=== PATIENT | male | born 1985 | race African-American/Black ===

== ENCOUNTER 2023-12-07 23:11 | Inpatient (IN) ==
--- NOTE | 2023-12-07 23:43 | Emergency Department Note ---
Impression & Plan SOB (shortness of breath), Hypoxia, Abnormal CT scan ED Provider Note CHIEF COMPLAINT: Shortness of breath HISTORY OF PRESENTING ILLNESS: This 38-year-old male patient presents to the emergency department with his mother for evaluation of shortness of breath. The patient has had a cough, nasal congestion, loose stools, sore throat, and shortness of breath for the past 4 days. The patient was at [facility] last evening and was COVID-negative with normal CXR per patient. He states that he did not have any other testing done. The patient states that he has not improved with the treatment from the ER last evening. The patient states that his O2 sats are down to 90% at home. He has been coughing so much he is vomiting. He has been taking the Tessalon Perles and Albuterol without improvement of his symptoms. He did not develop a fever until this evening. Having some lower abdominal pain along with the nausea and vomiting. Also feels like he's losing his voice. REVIEW OF SYSTEMS: See HPI for pertinent positives and pertinent negatives. ALLERGIES: NKDA MEDICATIONS: Vit D PAST MEDICAL HISTORY: Vit D deficiency, Asthma PHYSICAL EXAM: Vital Signs: Vitals are noted on the nurse's note and reviewed by myself. GENERAL: The patient appears ill, but non toxic in appearance and in no acute distress. SKIN: No obvious abnormal rashes or skin lesions. Capillary reflex less than 2 seconds. HEAD: Normocephalic, atraumatic. EARS: Bilateral external auditory canals clear without tragus tenderness. Bilateral tympanic membranes pearly cruz with mild serous effusion. No mastoid tenderness bilaterally. EYES: Pupils equal round and reactive to light and accommodation. Conjunctivae without injection, sclerae without icterus. Extraocular movements intact. NOSE: Patent, turbinates inflamed with no discharge. No sinus tenderness. MOUTH: Mucous membranes moist. Airway patent, uvula midline. Pharynx is erythematous and edematous without exudate. Pharynx without postnasal drip. No evidence for peritonsillar abscess. NECK: Supple without nuchal rigidity. No lymphadenopathy. No Jos angina. HEART: Regular rate and rhythm without murmurs gallops or rubs. LUNGS: Clear to auscultation bilaterally without wheezes, rales or rhonchi. No accessory muscle use or retractions. ABDOMEN: Positive bowel sounds x 4. Normal tympanic percussion. Soft, diffusely tender to palpation with increased tenderness in the lower abdomen. No obvious masses or organomegaly. No CVA tenderness. No guarding, rigidity, or rebound tenderness. NEURO: Patient was alert and oriented. DIFFERENTIAL DIAGNOSIS: Differential diagnosis includes viral syndrome, RSV, Influenza, COVID, strep throat, pharyngitis/tonsillitis, mononucleosis, retropharyngeal abscess, peritonsillar abscess, otitis media, otitis externa, sinusitis, bronchitis, pneumonia, hepatitis, pancreatitis, cholecystitis, cholelithiasis, appendicitis, kidney stone, pyelonephritis, UTI, gastritis, gastroenteritis, mesenteric adenitis, obstruction, constipation, hernia, abdominal abscess, perforation, diverticulitis, IBD, ischemic colitis, abdominal aortic aneurysm, testicular torsion, prostatitis, or others. ED COURSE AND MEDICAL DECISION MAKING: HISTORY FROM INDEPENDENT HISTORIAN: Additional history was obtained from the patient's mother MEDICATIONS GIVEN: 1 L normal saline solution bolus. Tylenol 1000 mg IV. DuoNeb treatment. MONITOR: Continuous front office attendant: Order was placed for continuous front office attendant. Patient was placed on the front office attendant and continuous pulse ox. Patient was noted to be in sinus tachycardia at an initial rate of 110 bpm per my interpretation. EKG: EKG was interpreted by myself as sinus tachycardia at 102 bpm with no acute ST or T wave changes. INTERPRETATION OF LABS: I interpreted the labs with full lab results as below in the lab section of this note. Pertinent lab results discussed in the MDM section below. INTERPRETATION OF IMAGING: Imaging studies were interpreted by myself and read by radiology as per the imaging section of this note. CTA of the chest and CT of the abdomen pelvis with IV contrast showed no pulmonary embolism, aortic aneurysm or dissection. Nonspecific mediastinal/bilateral hilar and axillary lymphadenopathy. PET CT scan correlation and or biopsy for histological diagnosis recommended. Moderately severe centrilobular pulmonary emphysema. Moderate bilateral bronchial wall thickening/mild dilatation. Mildly enlarged main pulmonary artery, suggestive of sequela of secondary pulmonary arterial hypertension. CT chest noted a 2.0 x 1.6 cm subtle focal filling defect in the cardiac left lateral ventricle, question thrombus/pseudo-thrombus versus angiosarcoma. Recommend follow-up. Nonspecific multiple small/shotty para- aortic retroperitoneal lymph node seen. No lymphadenopathy by CT size criteria. Increased urinary bladder wall thickness, concerning for chronic cystitis versus outlet obstruction. Recommend clinical correlation. Moderately advanced degenerative disc/endplate spondylitic changes seen from L2-S1 levels. CONSULTATIONS: On-call hospitalist CRITICAL CARE: I have personally spent 40 minutes of critical care time in the direct management of this patient. This includes bedside care, interpretation of diagnostic studies, and testing, discussion with consultants, patient, and family members, and other required patient management activities. This 40 minutes is in excess of all separately billable procedures. MDM SUMMARY: The patient was seen during a time of extreme volume and extreme acuity. Nursing triage protocols were initiated with IV lock, labs, and/or imaging studies conducted by protocol in the triage area. The patient was initially evaluated in a triage room and then re-evaluated once they were taken back to an exam room. The patient has had a sore throat, cough, nasal congestion, shortness of breath, abdominal pain, and diarrhea for the past 4 days. He was seen at [facility] yesterday with a negative COVID test and negative chest x-ray per patient. He was given Tessalon Perles without improvement. The patient states that the symptoms are getting progressively worse and he now has a fever. The patient states his pulse ox at home was 90%. He denies any history of cardiac or pulmonary etiologies. The patient was initially tachycardic and febrile with pulse ox around 90 to 91%. The patient was given 1 L normal saline solution bolus, Tylenol 1000 mg IV, and a DuoNeb treatment. His fever resolved and his tachycardia improved. However, the patient's pulse ox did drop down to 86% and he was placed on 2 L of oxygen by nasal cannula. EKG with sinus tachycardia, but no other acute abnormalities. White blood cell count elevated 11.04. Hemoglobin normal at 15.6. Platelet count normal at 213. aPTT 33, but the rest of the coags were normal. CMP was normal. Lactate normal. Magnesium normal. High-sensitivity troponin normal. Urinalysis with trace ketones and positive urobilinogen, but no evidence for UTI. Respiratory BioFire was negative. Group A strep PCR negative. Anaplasma and Babesia smear were negative with DNA PCR still pending. Lyme disease screen is pending. CTA of the chest and CT of the abdomen pelvis with IV contrast showed no pulmonary embolism, aortic aneurysm or dissection. Nonspecific mediastinal/bilateral hilar and axillary lymphadenopathy. PET CT scan correlation and or biopsy for histological diagnosis recommended. Moderately severe centrilobular pulmonary emphysema. Moderate bilateral bronchial wall thickening/mild dilatation. Mildly enlarged main pulmonary artery, suggestive of sequela of secondary pulmonary arterial hypertension. CT chest noted a 2.0 x 1.6 cm subtle focal filling defect in the cardiac left lateral ventricle, question thrombus/pseudo-thrombus versus angiosarcoma. Recommend follow-up. Nonspecific multiple small/shotty para-aortic retroperitoneal lymph node seen. No lymphadenopathy by CT size criteria. Increased urinary bladder wall thickness, concerning for chronic cystitis versus outlet obstruction. Recommend clinical correlation. Moderately advanced degenerative disc/endplate spondylitic changes seen from L2-S1 levels. Due to the patient's abnormal CT scan findings as well as his hypoxia, the patient will need to be admitted for further evaluation and treatment. I spoke with the on-call hospitalist who agreed to admit the patient. Please refer to their dictation for further details. The patient's care was transferred in stable condition. DIAGNOSIS: Shortness of breath Hypoxia ` Abnormal CT scans Past Med/Surg History Problem List (Updated 12/08/23 @ 04:57 by Fátima Adkins PA-C) Abnormal CT scan (Acute) Hypoxia (Acute) SOB (shortness of breath) (Acute) Social History Smoking Status: Former smoker Tobacco Type: Cigarettes Preferred Language: Malaysian Feels Safe at Home: Yes Allergies Allergies Allergy/AdvReac Type Severity Reaction Status Date / Time No Known Allergies Allergy Verified 12/07/23 23:52 Results & Data (ED) Vital Signs Vital Signs - 24 hr 12/07/23 23:14 12/08/23 00:30 12/08/23 01:03 Temperature 38.8 C H Temperature Source Oral Pulse Rate 117 H Pulse Rate [Right Finger] 109 H Pulse Rhythm Pulse Rhythm [Right Finger] Pulse Strength [Right Finger] Respiratory Rate 18 Respiratory Effort / Characteristics Non-Labored Spontaneous Non-Labored Spontaneous Respiratory Depth Normal Normal Respiratory Pattern Regular Regular Blood Pressure 145/86 H Blood Pressure [Right Arm] 140/75 Blood Pressure Mean 105 Blood Pressure Mean [Right Arm] 96 Blood Pressure Position Sitting Blood Pressure Position [Right Arm] Lying Pulse Oximetry 91 90 Oxygen Delivery Method Room Air Room Air Oxygen Flow Rate Sepsis Recent Fever Within 48 Hours Yes Sepsis New/Unexplained Change in Mental Status N/A Sepsis Action Taken by Nursing Physician Notified 12/08/23 01:03 12/08/23 02:49 12/08/23 03:04 Temperature Temperature Source Pulse Rate 109 H 101 H Pulse Rate [Right Finger] 83 Pulse Rhythm Regular Pulse Rhythm [Right Finger] Regular Pulse Strength [Right Finger] Normal Respiratory Rate 27 H Respiratory Effort / Characteristics Non-Labored Respiratory Depth Normal Respiratory Pattern Regular Blood Pressure Blood Pressure [Right Arm] 136/77 Blood Pressure Mean Blood Pressure Mean [Right Arm] 96 Blood Pressure Position Blood Pressure Position [Right Arm] Lying Pulse Oximetry 90 90 Oxygen Delivery Method Room Air Room Air Oxygen Flow Rate Sepsis Recent Fever Within 48 Hours Sepsis New/Unexplained Change in Mental Status Sepsis Action Taken by Nursing 12/08/23 03:13 12/08/23 03:21 12/08/23 03:45 Temperature 36.9 C Temperature Source Oral Pulse Rate Pulse Rate [Right Finger] 97 H Pulse Rhythm Pulse Rhythm [Right Finger] Pulse Strength [Right Finger] Respiratory Rate 20 Respiratory Effort / Characteristics Non-Labored Spontaneous Respiratory Depth Normal Respiratory Pattern Regular Blood Pressure Blood Pressure [Right Arm] 122/80 Blood Pressure Mean Blood Pressure Mean [Right Arm] 94 Blood Pressure Position Blood Pressure Position [Right Arm] Sitting Pulse Oximetry 91 86 L Oxygen Delivery Method Room Air Room Air Room Air Oxygen Flow Rate Sepsis Recent Fever Within 48 Hours Sepsis New/Unexplained Change in Mental Status Sepsis Action Taken by Nursing 12/08/23 03:49 Temperature Temperature Source Pulse Rate Pulse Rate [Right Finger] Pulse Rhythm Pulse Rhythm [Right Finger] Pulse Strength [Right Finger] Respiratory Rate Respiratory Effort / Characteristics Respiratory Depth Respiratory Pattern Blood Pressure Blood Pressure [Right Arm] Blood Pressure Mean Blood Pressure Mean [Right Arm] Blood Pressure Position Blood Pressure Position [Right Arm] Pulse Oximetry 92 Oxygen Delivery Method Nasal Cannula Oxygen Flow Rate 2 Sepsis Recent Fever Within 48 Hours Sepsis New/Unexplained Change in Mental Status Sepsis Action Taken by Nursing Laboratory Data 12/07/23 00:55 12/08/23 00:55 Lab Results 12/07/23 12/07/23 12/07/23 Range/Units 00:55 23:24 23:57 WBC 11.04 H (4.8-10.8) K/ul RBC 5.56 (4.70-6.10) M/uL Hgb 15.6 (14.0-18.0) g/dl Hct 46.3 (42.0-52.0) % MCV 83.3 (80.0-100.0) fL MCH 28.1 (25.0-34.0) pg MCHC 33.7 (32.0-36.0) g/dL RDW Std Deviation 38.9 (36.4-46.3) fL RDW Coeff of Lizette 12.9 (11.5-14.5) % Plt Count 213 (130-400) K/uL MPV 10.0 (9.4-12.4) fL Immature Gran % (Auto) 0.2 % Neut % (Auto) 67.6 % Lymph % (Auto) 21.6 % [place] % (Auto) 9.8 % Eos % (Auto) 0.5 % Baso % (Auto) 0.3 % Neut # (Auto) 7.48 H (1.40-6.50) K/uL Lymph # (Auto) 2.38 (1.20-3.40) K/uL [place] # (Auto) 1.08 H (0.11-0.59) K/uL Eos # (Auto) 0.05 (0.00-0.50) K/uL Baso # (Auto) 0.03 (0.00-0.20) K/uL Immature Gran # (Auto) 0.02 (0.01-0.20) K/uL PT (9.0-12.0) Seconds INR (0.9-1.1) APTT (21-31) Seconds PTT Ratio Sodium (136-145) mmol/L Potassium (3.5-5.1) mmol/L Chloride (98-107) mmol/L Carbon Dioxide (21-32) mmol/L Anion Gap (3-11) BUN (6-23) mg/dl Creatinine (0.6-1.4) mg/dl Est Cr Clr Drug Dosing ml/min eGFR BUN/Creatinine Ratio (10-20) Glucose (70-99(Fasting)) mg/dl Lactate 1.0 (0.4-2.0) mmol/L Calcium (8.6-10.3) mg/dl Magnesium (1.7-2.4) mg/dl Total Bilirubin (0.2-1.0) mg/dl AST (13-39) U/L ALT (7-52) U/L Alkaline Phosphatase (34-104) U/L Troponin I High Sens (0-20) pg/ml Total Protein (6.0-8.3) gm/dl Albumin (3.4-5.0) gm/dl Globulin (2.5-4.0) gm/dl Albumin/Globulin Ratio (0.9-2) Procalcitonin Cancelled Urine Color Urine Appearance (Clear) Urine pH (4.5-7.5) Ur Specific [place] (1.000-1.030) Urine Protein (Negative) Urine Glucose (UA) (Negative) Urine Ketones (Negative) Urine Blood (Negative) Urine Nitrite (Negative) Urine Bilirubin (Negative) Urine Urobilinogen (Negative) Ur Leukocyte Esterase (Negative) Urine WBC (Auto) (0-5) /hpf Urine RBC (Auto) (0-2) /hpf U Hyaline Cast (Auto) (0-2) /lpf U Epithel Cells (Auto) (0-2) /hpf Urine Bacteria (Auto) (None Seen) Adenovirus (PCR) Not Detected (NotDetected) Anaplasma Smear Babesia Smear B. pertussis DNA (PCR) Not Detected (NotDetected) B.parapertussis DNA PCR Not Detected (NotDetected) C. pneumoniae DNA (PCR) Not Detected (NotDetected) Coronavirus OC43 (PCR) Not Detected (NotDetected) Coronavirus HKU1 (PCR) Not Detected (NotDetected) Coronavirus 229E (PCR) Not Detected (NotDetected) SARS-CoV-2 (PCR) Not Detected (NotDetected) Coronavirus NL63 (PCR) Not Detected (NotDetected) Human Metapneumovir PCR Not Detected (NotDetected) Influenza Type A (PCR) Not Detected (NotDetected) Influenza Type B (PCR) Not Detected (NotDetected) M. pneumoniae (PCR) Not Detected (NotDetected) Parainfluenza 1 (PCR) Not Detected (NotDetected) Parainfluenza 2 (PCR) Not Detected (NotDetected) Parainfluenza 3 (PCR) Not Detected (NotDetected) Parainfluenza 4 (PCR) Not Detected (NotDetected) RSV (PCR) Not Detected (NotDetected) Entero/Rhino (PCR) Not Detected (NotDetected) Group A Strep (PCR) NOT DETECTED (NotDetected) 12/08/23 12/08/23 Range/Units 00:55 02:15 WBC (4.8-10.8) K/ul RBC (4.70-6.10) M/uL Hgb (14.0-18.0) g/dl Hct (42.0-52.0) % MCV (80.0-100.0) fL MCH (25.0-34.0) pg MCHC (32.0-36.0) g/dL RDW Std Deviation (36.4-46.3) fL RDW Coeff of Lizette (11.5-14.5) % Plt Count (130-400) K/uL MPV (9.4-12.4) fL Immature Gran % (Auto) % Neut % (Auto) % Lymph % (Auto) % [place] % (Auto) % Eos % (Auto) % Baso % (Auto) % Neut # (Auto) (1.40-6.50) K/uL Lymph # (Auto) (1.20-3.40) K/uL [place] # (Auto) (0.11-0.59) K/uL Eos # (Auto) (0.00-0.50) K/uL Baso # (Auto) (0.00-0.20) K/uL Immature Gran # (Auto) (0.01-0.20) K/uL PT 10.9 (9.0-12.0) Seconds INR 1.0 (0.9-1.1) APTT 33 H (21-31) Seconds PTT Ratio 1.2 Sodium 136 (136-145) mmol/L Potassium 3.8 (3.5-5.1) mmol/L Chloride 102 (98-107) mmol/L Carbon Dioxide 24 (21-32) mmol/L Anion Gap 10 (3-11) BUN 11 (6-23) mg/dl Creatinine 0.90 (0.6-1.4) mg/dl Est Cr Clr Drug Dosing 120.7 ml/min eGFR 113.51 BUN/Creatinine Ratio 12.2 (10-20) Glucose 98 (70-99(Fasting)) mg/dl Lactate (0.4-2.0) mmol/L Calcium 9.3 (8.6-10.3) mg/dl Magnesium 1.9 (1.7-2.4) mg/dl Total Bilirubin 0.6 (0.2-1.0) mg/dl AST 24 (13-39) U/L ALT 27 (7-52) U/L Alkaline Phosphatase 92 (34-104) U/L Troponin I High Sens 7.4 (0-20) pg/ml Total Protein 7.5 (6.0-8.3) gm/dl Albumin 4.4 (3.4-5.0) gm/dl Globulin 3.1 (2.5-4.0) gm/dl Albumin/Globulin Ratio 1.4 (0.9-2) Procalcitonin Urine Color Yellow Urine Appearance Clear (Clear) Urine pH 8.0 H (4.5-7.5) Ur Specific [place] 1.031 H (1.000-1.030) Urine Protein 1+ H (Negative) Urine Glucose (UA) Negative (Negative) Urine Ketones Trace H (Negative) Urine Blood Negative (Negative) Urine Nitrite Negative (Negative) Urine Bilirubin Negative (Negative) Urine Urobilinogen Positive H (Negative) Ur Leukocyte Esterase Negative (Negative) Urine WBC (Auto) 0-5 (0-5) /hpf Urine RBC (Auto) 0-2 (0-2) /hpf U Hyaline Cast (Auto) 0-2 (0-2) /lpf U Epithel Cells (Auto) 0-2 (0-2) /hpf Urine Bacteria (Auto) None Seen (None Seen) Adenovirus (PCR) (NotDetected) Anaplasma Smear See Comment Babesia Smear See Comment B. pertussis DNA (PCR) (NotDetected) B.parapertussis DNA PCR (NotDetected) C. pneumoniae DNA (PCR) (NotDetected) Coronavirus OC43 (PCR) (NotDetected) Coronavirus HKU1 (PCR) (NotDetected) Coronavirus 229E (PCR) (NotDetected) SARS-CoV-2 (PCR) (NotDetected) Coronavirus NL63 (PCR) (NotDetected) Human Metapneumovir PCR (NotDetected) Influenza Type A (PCR) (NotDetected) Influenza Type B (PCR) (NotDetected) M. pneumoniae (PCR) (NotDetected) Parainfluenza 1 (PCR) (NotDetected) Parainfluenza 2 (PCR) (NotDetected) Parainfluenza 3 (PCR) (NotDetected) Parainfluenza 4 (PCR) (NotDetected) RSV (PCR) (NotDetected) Entero/Rhino (PCR) (NotDetected) Group A Strep (PCR) (NotDetected) Administered Medications Discontinued Medications Albuterol (Albut/Ipratrop 3mg/0.5mg Neb 3 Ml Vial) 3 ml NEB NOW STA; Protocol Stop: 12/08/23 02:53 Last Admin: 12/08/23 03:04 Dose: 3 ml Documented By: SHAWN Sodium Chloride (Nss) 1,000 mls @ 999 mls/hr IV .Q1H1M MALIK Stop: 12/08/23 00:30 Last Infusion: 12/08/23 02:19 Dose: Infused Documented By: Admin: 12/08/23 01:09 Dose: 999 mls/hr Documented By: SHAWN Acetaminophen (Ofirmev) 1,000 mg in 100 mls @ 400 mls/hr IV NOW STA Stop: 12/07/23 23:39 Last Infusion: 12/08/23 01:09 Dose: Infused Documented By: Admin: 12/08/23 00:56 Dose: 400 mls/hr Documented By: SHAWN Ioversol (Optiray 320 125ml) 118 ml IV ONCE ONE Stop: 12/08/23 02:33 Last Admin: 12/08/23 02:32 Dose: 118 ml Documented By: JAIMEE Imaging Data Radiologist's Impression: Abdomen/Pelvis CT 12/07/23 23:53 Exam(s): CT ABDOMEN + PELVIS With Contrast IV Amt: 118 ml opti 320 EXAM: CT Abdomen and Pelvis With Intravenous Contrast CLINICAL HISTORY: Reason for exam: Abdominal pain, diarrhea, fever. TECHNIQUE: Axial computed tomography images of the abdomen and pelvis with intravenous contrast. CTDI is 25.63 mGy and DLP is 1340.28 mGy-cm. Automated exposure control was utilized for the study. A dose lowering technique was utilized adhering to the principles of ALARA. CONTRAST: Patient received 118 ml opti 320 of IV contrast COMPARISON: None. FINDINGS: Lung bases: Concurrently performed CT chest reported separately. CTA chest series 2 image 46 a focal filling defect is seen medially in the left lateral ventricle. A 2.0 x 1.6 cm subtle nonspecific focal filling defect seen medially in the left ventricle (series 5 image 9, series 6 image 33), question thrombus/pseudo-thrombus versus? angiosarcoma.. ABDOMEN: Motion-induced image degradation. Liver: Mild steatosis.. No mass. Gallbladder and bile ducts: Unremarkable. No calcified stones. No ductal dilation. Pancreas: Unremarkable. No mass. No ductal dilation. Spleen: Unremarkable. No splenomegaly. Adrenals: Unremarkable. No mass. Kidneys and ureters: Unremarkable. No solid mass. No hydronephrosis. Stomach and bowel: Unremarkable. No obstruction. No mucosal thickening. Sigmoid diverticulosis coli. No evidence of acute diverticulitis. PELVIS: Appendix: Normal appendix. Bladder: There is up to 10 mm wall thickness.. No mass. Reproductive: Borderline enlarged prostate. ABDOMEN and PELVIS: Intraperitoneal space: No free air. No significant fluid collection. Bones/joints: Moderate degenerative disc/endplate spondylitic changes are seen from L2-S1 levels. No acute fracture. No dislocation. Soft tissues: Unremarkable. A very a small fat-containing umbilical hernia. Vasculature: Unremarkable. No abdominal aortic aneurysm. Lymph nodes: Several small/shotty para-aortic/retroperitoneal lymph nodes are seen.. No lymphadenopathy by CT size criteria. IMPRESSION: CT chest noted a 2.0 x 1.6 cm subtle focal filling defect in the cardiac left lateral ventricle, question thrombus/pseudo-thrombus versus angiosarcoma. Recommend follow-up. Nonspecific multiple small/shotty para-aortic retroperitoneal lymph node seen. No lymphadenopathy by CT size criteria. Increased urinary bladder wall thickness, concerning for chronic cystitis versus outlet obstruction. Recommend clinical correlation. Moderately advanced degenerative disc/endplate spondylitic changes seen from L2-S1 levels. . Electronically signed by: Sandor Ying MD, DABR 12/08/23 04:21 AM Chest CTA 12/07/23 23:53 Exam(s): CTA CHEST IV Amt: 118 ml opti 320 EXAM: CT Angiography Chest With Intravenous Contrast CLINICAL HISTORY: Reason for exam: PE. TECHNIQUE: Axial computed tomographic angiography images of the chest with intravenous contrast. CTDI is 25.35 mGy and DLP is 875.48 mGy-cm. Automated exposure control was utilized for the study. A dose lowering technique was utilized adhering to the principles of ALARA. MIP reconstructed images were created and reviewed. COMPARISON: None. FINDINGS: Limited exam, suboptimal IV contrast bolus and motion artifact. Pulmonary arteries: Mildly enlarged: 32 mm in transverse measurement. No pulmonary embolism. Aorta: No acute findings. No thoracic aortic aneurysm. Lungs: Patent central airways. Diffuse moderate bilateral bronchial wall thickening/mild dilatation. Moderately severe centrilobular emphysema. Centrally a small platelike atelectasis in the right middle lob. No discernible mass. No consolidation. Pleural space: Unremarkable. No significant effusion. No pneumothorax. Heart: Unremarkable. No cardiomegaly. No significant pericardial effusion. No evidence of RV dysfunction. Bones/joints: No acute fracture. No dislocation. Soft tissues: Unremarkable. Lymph nodes: Multiple moderately enlarged mediastinal/bilateral hilar lymph nodes/lymphadenopathy. Multiple bilateral axillary moderately enlarged lymph nodes/lymphadenopathy. IMPRESSION: No pulmonary embolism, aortic aneurysm or dissection. Nonspecific mediastinal/bilateral hilar and axillary lymphadenopathy. PET CT scan correlation and or biopsy for histological diagnosis recommended. Moderately severe centrilobular pulmonary emphysema. Moderate bilateral bronchial wall thickening/mild dilatation. Mildly enlarged main pulmonary artery, suggestive of sequela of secondary pulmonary arterial hypertension. . Electronically signed by: Sandor Ying MD, DABR 12/08/23 04:02 AM Discharge Plan Visit Data Chief Complaint: Shortness of Breath/Dyspnea Stated Complaint: SOB ED Provider: [facility] ED Midlevel Provider: Fátima Adkins Discharge Problem: SOB (shortness of breath), Hypoxia, Abnormal CT scan Patient Disposition: Admitted As Inpatient Condition: Good Forms Stand Alone Forms: [facility] Referrals Referrals: PCP,NO [Physician] -
[2023-12-08 00:42] LABS: Adenovirus PCR Not Detected (NotDetected); Bordetella parapertussis PCR Not Detected (NotDetected); Bordetella pertussis PCR Not Detected (NotDetected); Chlamydia pneumoniae PCR Not Detected (NotDetected); Coronavirus 229E PCR Not Detected (NotDetected); Coronavirus CoV-2 (COVID19)PCR Not Detected (NotDetected); Coronavirus HKU1 PCR Not Detected (NotDetected); Coronavirus NL63 PCR Not Detected (NotDetected); Coronavirus OC43PCR Not Detected (NotDetected); Human Metapneumovirus PCR Not Detected (NotDetected); Influenza A PCR Not Detected (NotDetected); Influenza B PCR Not Detected (NotDetected); Mycoplasma pneumoniae PCR Not Detected (NotDetected); Parainfluenza Virus 1 PCR Not Detected (NotDetected); Parainfluenza Virus 2 PCR Not Detected (NotDetected); Parainfluenza Virus 3 PCR Not Detected (NotDetected); Parainfluenza Virus 4 PCR Not Detected (NotDetected); Respiratory Syncytial VirusPCR Not Detected (NotDetected); Rhinovirus/Enterovirus PCR Not Detected (NotDetected)
[2023-12-08] MEDS: ACETAMINOPHEN 1,000 MG/100 ML VIAL IV STA (00:56)
[2023-12-08] MEDS: SODIUM CHLORIDE 0.9% 1,000 ML IV SCH (01:09)
[2023-12-08 01:15] LABS: Basophils # (auto) 0.03 K/uL (0.00-0.20); Basophils % (auto) 0.3 %; Eosinophils # (auto) 0.05 K/uL (0.00-0.50); Eosinophils % (auto) 0.5 %; Hematocrit (blood only) 46.3 % (42.0-52.0); Hemoglobin 15.6 g/dl (14.0-18.0); Immature Granulocytes # (auto) 0.02 K/uL (0.01-0.20); Immature Granulocytes % (auto) 0.2 %; Lymphocytes # (auto) 2.38 K/uL (1.20-3.40); Lymphocytes % (auto) 21.6 %; Mean Corpuscular Hemoglobin 28.1 pg (25.0-34.0); Mean Corpuscular Hgb Conc 33.7 g/dL (32.0-36.0); Mean Corpuscular Volume 83.3 fL (80.0-100.0); Monocytes # (auto) 1.08 K/uL (0.11-0.59); Monocytes % (auto) 9.8 %; Neutrophils # (auto) 7.48 K/uL (1.40-6.50); Neutrophils % (auto) 67.6 %; Platelet Count 213 K/uL (130-400); RDW Coefficient of Variation 12.9 % (11.5-14.5); RDW Standard Deviation 38.9 fL (36.4-46.3); Red Blood Count 5.56 M/uL (4.70-6.10); White Blood Count 11.04 K/ul (4.8-10.8)
[2023-12-08 01:32] LABS: Albumin Globulin Ratio 1.4 (0.9-2); Albumin Level 4.4 gm/dl (3.4-5.0); BUN Creatinine Ratio 12.2 (10-20); Bilirubin,Total 0.6 mg/dl (0.2-1.0); Calcium 9.3 mg/dl (8.6-10.3); Creatinine Clr Calc Pharmacy 120.7 ml/min; Globulin 3.1 gm/dl (2.5-4.0); Magnesium 1.9 mg/dl (1.7-2.4); Potassium 3.8 mmol/L (3.5-5.1); Total Protein 7.5 gm/dl (6.0-8.3)
[2023-12-08 01:39] LABS: Troponin I High Sensitivity 7.4 pg/ml (0-20)
[2023-12-08 01:54] LABS: Partial Thromboplastin Ratio 1.2; Partial Thromboplastin Time 33 Seconds (21-31); Prothrombin Time 10.9 Seconds (9.0-12.0)
[2023-12-08] MEDS: OPTIRAY 320 125ml IV ONE (02:32)
[2023-12-08 02:38] LABS: Appearance Urine Clear (Clear); Bacteria Urine Automated None Seen (None Seen); Bilirubin Urine Negative (Negative); Blood Urine Negative (Negative); Cast Urine Automated 0-2 /lpf (0-2); Color Urine Yellow; Epithelial Cell Urine Auto 0-2 /hpf (0-2); Glucose Urine UA Negative (Negative); Ketones Urine Trace (Negative); Leukocyte Esterase Urine Negative (Negative); Nitrite Urine Negative (Negative); Protein Urine 1+ (Negative); RBC Urine Automated 0-2 /hpf (0-2); Specific Gravity Urine 1.031 (1.000-1.030); Urobilinogen Urine Positive (Negative); WBC Urine Automated 0-5 /hpf (0-5)
[2023-12-08] MEDS: ALBUT/IPRATROP 3MG/0.5MG NEB 3 ML VIAL NEB STA (03:04)
--- NOTE | 2023-12-08 04:03 | CT Scan Report ---
Exam(s): CTA CHEST IV Amt: 118 ml opti 320 EXAM: CT Angiography Chest With Intravenous Contrast CLINICAL HISTORY: Reason for exam: PE. TECHNIQUE: Axial computed tomographic angiography images of the chest with intravenous contrast. CTDI is 25.35 mGy and DLP is 875.48 mGy-cm. Automated exposure control was utilized for the study. A dose lowering technique was utilized adhering to the principles of ALARA. MIP reconstructed images were created and reviewed. COMPARISON: None. FINDINGS: Limited exam, suboptimal IV contrast bolus and motion artifact. Pulmonary arteries: Mildly enlarged: 32 mm in transverse measurement. No pulmonary embolism. Aorta: No acute findings. No thoracic aortic aneurysm. Lungs: Patent central airways. Diffuse moderate bilateral bronchial wall thickening/mild dilatation. Moderately severe centrilobular emphysema. Centrally a small platelike atelectasis in the right middle lob. No discernible mass. No consolidation. Pleural space: Unremarkable. No significant effusion. No pneumothorax. Heart: Unremarkable. No cardiomegaly. No significant pericardial effusion. No evidence of RV dysfunction. Bones/joints: No acute fracture. No dislocation. Soft tissues: Unremarkable. Lymph nodes: Multiple moderately enlarged mediastinal/bilateral hilar lymph nodes/lymphadenopathy. Multiple bilateral axillary moderately enlarged lymph nodes/lymphadenopathy. IMPRESSION: No pulmonary embolism, aortic aneurysm or dissection. Nonspecific mediastinal/bilateral hilar and axillary lymphadenopathy. PET CT scan correlation and or biopsy for histological diagnosis recommended. Moderately severe centrilobular pulmonary emphysema. Moderate bilateral bronchial wall thickening/mild dilatation. Mildly enlarged main pulmonary artery, suggestive of sequela of secondary pulmonary arterial hypertension. . Electronically signed by: Sandor Ying MD, DANIELER 12/08/23 04:02 AM
--- NOTE | 2023-12-08 04:22 | CT Scan Report ---
Exam(s): CT ABDOMEN + PELVIS With Contrast IV Amt: 118 ml opti 320 EXAM: CT Abdomen and Pelvis With Intravenous Contrast CLINICAL HISTORY: Reason for exam: Abdominal pain, diarrhea, fever. TECHNIQUE: Axial computed tomography images of the abdomen and pelvis with intravenous contrast. CTDI is 25.63 mGy and DLP is 1340.28 mGy-cm. Automated exposure control was utilized for the study. A dose lowering technique was utilized adhering to the principles of ALARA. CONTRAST: Patient received 118 ml opti 320 of IV contrast COMPARISON: None. FINDINGS: Lung bases: Concurrently performed CT chest reported separately. CTA chest series 2 image 46 a focal filling defect is seen medially in the left lateral ventricle. A 2.0 x 1.6 cm subtle nonspecific focal filling defect seen medially in the left ventricle (series 5 image 9, series 6 image 33), question thrombus/pseudo-thrombus versus? angiosarcoma.. ABDOMEN: Motion-induced image degradation. Liver: Mild steatosis.. No mass. Gallbladder and bile ducts: Unremarkable. No calcified stones. No ductal dilation. Pancreas: Unremarkable. No mass. No ductal dilation. Spleen: Unremarkable. No splenomegaly. Adrenals: Unremarkable. No mass. Kidneys and ureters: Unremarkable. No solid mass. No hydronephrosis. Stomach and bowel: Unremarkable. No obstruction. No mucosal thickening. Sigmoid diverticulosis coli. No evidence of acute diverticulitis. PELVIS: Appendix: Normal appendix. Bladder: There is up to 10 mm wall thickness.. No mass. Reproductive: Borderline enlarged prostate. ABDOMEN and PELVIS: Intraperitoneal space: No free air. No significant fluid collection. Bones/joints: Moderate degenerative disc/endplate spondylitic changes are seen from L2-S1 levels. No acute fracture. No dislocation. Soft tissues: Unremarkable. A very a small fat-containing umbilical hernia. Vasculature: Unremarkable. No abdominal aortic aneurysm. Lymph nodes: Several small/shotty para-aortic/retroperitoneal lymph nodes are seen.. No lymphadenopathy by CT size criteria. IMPRESSION: CT chest noted a 2.0 x 1.6 cm subtle focal filling defect in the cardiac left lateral ventricle, question thrombus/pseudo-thrombus versus angiosarcoma. Recommend follow-up. Nonspecific multiple small/shotty para-aortic retroperitoneal lymph node seen. No lymphadenopathy by CT size criteria. Increased urinary bladder wall thickness, concerning for chronic cystitis versus outlet obstruction. Recommend clinical correlation. Moderately advanced degenerative disc/endplate spondylitic changes seen from L2-S1 levels. . Electronically signed by: Sandor Ying MD, DABR 12/08/23 04:21 AM
--- NOTE | 2023-12-08 05:04 | History & Physical Report ---
"Date of Service December 08, 2023 Assessment & Plan (1) Abnormal CT scan: (2) Hypoxia: (3) SOB (shortness of breath): (4) Leukocytosis: (5) Nicotine dependence: Plan Gianfranco is a 38M w/ PMH of elevated BP w/o diagnosis of HTN, prediabetes, and nicotine dependence who presents for dyspnea. Dyspnea, Acute on chronic | Hypoxia - 4 days of acutely worsened dyspnea and coughing over 1 year + of baseline exertional dyspnea - Labored breathing, reduced air entry, and axillary LAD on examination - Tachycardia and hypoxia on presentation O2 saturation improved w/ NC supplementation - Mild leukocytosis on CBC, CMP negative Respiratory viral panel negative Anaplasma and Babesia screen negative, Lyme screen pending Quantiferon gold ordered on admission - CTAP 2.0 x 1.6 cm subtle focal filling defect in the cardiac left lateral ventricle, question thrombus/pseudo-thrombus versus angiosarcoma Nonspecific multiple small/shotty para-aortic retroperitoneal lymph node seen. No lymphadenopathy by CT size criteria. - CTA Chest Nonspecific mediastinal/bilateral hilar and axillary lymphadenopathy. Moderately severe centrilobular pulmonary emphysema. Moderate bilateral bronchial wall thickening/mild dilatation. Mildly enlarged main pulmonary artery, suggestive of sequela of secondary pulmonary arterial hypertension. - Differential includes tuberculosis, sarcoidosis, malignancy Potential diagnoses and course of action shared with patient at length - Consult Cardiology Echocardiogram ordered Would plan General Surgery consult following Cardiology consult if Bx indicated Nicotine Dependence - Ongoing since teenage years, 1.5 PPD - Nicotine patch inpatient - Wants to quit Chronic Conditions - Elevated BP w/o HTN: no home medications - Prediabetes: no home medications Code: Full DVT: SCD/Ambulation IVF: None Diet: NPO pending further evaluation Dispo: Med/Tele History of Present Illness Chief Complaint: Dyspnea Primary Care Provider: Onelia Holland PA-C Gianfranco is a 38M w/ PMH of elevated BP w/o diagnosis of HTN, prediabetes, and nicotine dependence who presents for dyspnea. Patient notes that 4 days ago he was changing the muffler on his mom's car and breathed in some exhaust/smoke, instantly he began having episodes of severe coughing and shortness of breath. Patient is a chronic smoker, he has been smoking 1.5 PPD since he was a teenager. He notes that for at least 1 year he has had some mild dyspnea with exertion, that he didn't think much of as it didn't limit his daily activities. Over the last week as he has been coughing, he notes increased sore throat and hoarse voice, but denies any URI sx (congestion, PND, sinus pressure, or rhinorrhea). Patient has not experienced fevers, chills, or night sweats until today, when he was noted to have a fever i n the ED. Patient denies any nausea, emesis, abdominal pain, headaches, lightheadedness, or bowel/bladder changes. Patient has experienced no rashes or skin lesions. He does note that he has intermittently had swellings in his armpits that were notable when applying deodorant. He endorses normal appetite and has not lost weight. 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 In addition, one of the waitresses at the restaurant traveled out of the country ([place]) and came back sick and has had intermittent rashes since then. He is unsure what either individual was diagnosed with. Patient's mother was at bedside and noted that Gianfranco spent the entire first year of his life on oxygen therapy as he was born 3 months early. Patient has 3 young children at home and notes significant anxiety about getting home to his family. Patient was experiencing panic attack upon physician arrival to room but was able to talk through his concerns with provider. He would like to get home to his family as soon as possible. He is the sole provider for the household. Allergies Allergy/AdvReac Type Severity Reaction Status Date / Time No Known Allergies Allergy Verified 12/07/23 23:52 Home Medications Medication Instructions Recorded Confirmed Type albuterol sulfate 90 mcg/actuation 1 - 2 puff inhalation BID 12/08/23 12/08/23 History aerosol inhaler benzonatate 100 mg capsule 100 mg PO TID 12/08/23 12/08/23 History cholecalciferol (vitamin D3) 50 50 mcg PO DAILY 12/08/23 12/08/23 History mcg (2,000 unit) capsule Past Med/Surg History Problem List Nicotine dependence Leukocytosis Abnormal CT scan (Acute) Hypoxia (Acute) SOB (shortness of breath) (Acute) Social History Smoking Status: Current every day smoker Tobacco Type: Cigarettes Second Hand Exposure: Yes; Do You Dip or Chew Tobacco: No; Tobacco Cessation Education Requested by Patient: No Hx Alcohol Use: No Hx Substance Use: No Preferred Language: Uzbek Communication Ability: Effective Facility Manager Histology Required: No Beliefs That Will Affect Care: None Current Living Situation: Family and Significant Other Current Living Situation Comment: lives with fiance and 3 children Other Information That Helps Us Care for You: No Feels Safe at Home: Yes Safety Concerns: Feels Safe At This Time Assistive Devices: Denture - Upper and Glasses Physical Exam Physical Exam: Gen: Pleasant, anxious, speaking in short sentences HEENT: Supple, left axillary LAD, no thyromegaly, no JVD, dry mucous membranes, oropharyngeal erythema w/o exudates Resp:Labored, no wheezing/rhonchi/rales, restricted air entry bilaterally CV:tachycardic rate, regular rhythm, normal S1/S2, no M/R/G Abd: Soft, non-distended, no TTP, normoactive bowels, no masses Extr: 2+ dp bilaterally, no edema Skin: No rashes lesions or erythema Results & Data Results & Data Vital Signs (Past 12 Hours) Vital Signs Temp Pulse Pulse Resp BP BP Pulse Ox 12/08/23 03:49 92 12/08/23 03:45 86 L 12/08/23 03:21 36.9 C 97 H 20 122/80 91 12/08/23 03:13 12/08/23 03:04 83 27 H 136/77 90 12/08/23 02:49 101 H 12/08/23 01:03 109 H 90 12/08/23 01:03 109 H 140/75 90 12/08/23 00:30 12/07/23 23:14 38.8 C H 117 H 18 145/86 H 91 O2 Del Method O2 Flow Rate 12/08/23 03:49 Nasal Cannula 2 12/08/23 03:45 Room Air 12/08/23 03:21 Room Air 12/08/23 03:13 Room Air 12/08/23 03:04 Room Air 12/08/23 02:49 12/08/23 01:03 Room Air 12/08/23 01:03 12/08/23 00:30 Room Air 12/07/23 23:14 Room Air Diagnostic Findings Abdomen/Pelvis CT 12/07/23 23:53 Exam(s): CT ABDOMEN + PELVIS With Contrast IV Amt: 118 ml opti 320 EXAM: CT Abdomen and Pelvis With Intravenous Contrast CLINICAL HISTORY: Reason for exam: Abdominal pain, diarrhea, fever. TECHNIQUE: Axial computed tomography images of the abdomen and pelvis with intravenous contrast. CTDI is 25.63 mGy and DLP is 1340.28 mGy-cm. Automated exposure control was utilized for the study. A dose lowering technique was utilized adhering to the principles of ALARA. CONTRAST: Patient received 118 ml opti 320 of IV contrast COMPARISON: None. FINDINGS: Lung bases: Concurrently performed CT chest reported separately. CTA chest series 2 image 46 a focal filling defect is seen medially in the left lateral ventricle. A 2.0 x 1.6 cm subtle nonspecific focal filling defect seen medially in the left ventricle (series 5 image 9, series 6 image 33), question thrombus/pseudo-thrombus versus? angiosarcoma.. ABDOMEN: Motion-induced image degradation. Liver: Mild steatosis.. No mass. Gallbladder and bile ducts: Unremarkable. No calcified stones. No ductal dilation. Pancreas: Unremarkable. No mass. No ductal dilation. Spleen: Unremarkable. No splenomegaly. Adrenals: Unremarkable. No mass. Kidneys and ureters: Unremarkable. No solid mass. No hydronephrosis. Stomach and bowel: Unremarkable. No obstruction. No mucosal thickening. Sigmoid diverticulosis coli. No evidence of acute diverticulitis. PELVIS: Appendix: Normal appendix. Bladder: There is up to 10 mm wall thickness.. No mass. Reproductive: Borderline enlarged prostate. ABDOMEN and PELVIS: Intraperitoneal space: No free air. No significant fluid collection. Bones/joints: Moderate degenerative disc/endplate spondylitic changes are seen from L2-S1 levels. No acute fracture. No dislocation. Soft tissues: Unremarkable. A very a small fat-containing umbilical hernia. Vasculature: Unremarkable. No abdominal aortic aneurysm. Lymph nodes: Several small/shotty para-aortic/retroperitoneal lymph nodes are seen.. No lymphadenopathy by CT size criteria. IMPRESSION: CT chest noted a 2.0 x 1.6 cm subtle focal filling defect in the cardiac left lateral ventricle, question thrombus/pseudo-thrombus versus angiosarcoma. Recommend follow-up. Nonspecific multiple small/shotty para-aortic retroperitoneal lymph node seen. No lymphadenopathy by CT size criteria. Increased urinary bladder wall thickness, concerning for chronic cystitis versus outlet obstruction. Recommend clinical correlation. Moderately advanced degenerative disc/endplate spondylitic changes seen from L2-S1 levels. . Electronically signed by: Sandor Ying MD, YOSELIN 12/08/23 04:21 AM Chest CTA 12/07/23 23:53 Exam(s): CTA CHEST IV Amt: 118 ml opti 320 EXAM: CT Angiography Chest With Intravenous Contrast CLINICAL HISTORY: Reason for exam: PE. TECHNIQUE: Axial computed tomographic angiography images of the chest with intravenous contrast. CTDI is 25.35 mGy and DLP is 875.48 mGy-cm. Automated exposure control was utilized for the study. A dose lowering technique was utilized adhering to the principles of ALARA. MIP reconstructed images were created and reviewed. COMPARISON: None. FINDINGS: Limited exam, suboptimal IV contrast bolus and motion artifact. Pulmonary arteries: Mildly enlarged: 32 mm in transverse measurement. No pulmonary embolism. Aorta: No acute findings. No thoracic aortic aneurysm. Lungs: Patent central airways. Diffuse moderate bilateral bronchial wall thickening/mild dilatation. Moderately severe centrilobular emphysema. Centrally a small platelike atelectasis in the right middle lob. No discernible mass. No consolidation. Pleural space: Unremarkable. No significant effusion. No pneumothorax. Heart: Unremarkable. No cardiomegaly. No significant pericardial effusion. No evidence of RV dysfunction. Bones/joints: No acute fracture. No dislocation. Soft tissues: Unremarkable. Lymph nodes: Multiple moderately enlarged mediastinal/bilateral hilar lymph nodes/lymphadenopathy. Multiple bilateral axillary moderately enlarged lymph nodes/lymphadenopathy. IMPRESSION: No pulmonary embolism, aortic aneurysm or dissection. Nonspecific mediastinal/bilateral hilar and axillary lymphadenopathy. PET CT scan correlation and or biopsy for histological diagnosis recommended. Moderately severe centrilobular pulmonary emphysema. Moderate bilateral bronchial wall thickening/mild dilatation. Mildly enlarged main pulmonary artery, suggestive of sequela of secondary pulmonary arterial hypertension. . Electronically signed by: Sandor Ying MD, YOSELIN 12/08/23 04:02 AM Supervising Physician Co-Signing Physician Notes Patient seen and examined, chart reviewed, case discussed with Dr. Tijerina and I agree with the assessment and plan as above. Patient with cough and SOB. Found to have diffuse LAD as above. Concerning finding on CT for possible cardiac mass - thrombus vs pseudothombus vs angiosarcoma On exam patient is resting comfortably - anxious Skin - no rash HEENT - MMM, Neck supple Heart - +S1/S2, regular Lungs - scattered end-expiratory wheezing Abd - soft, NT/ND Labs and images reviewed Assessment/plan 38yo male, ongoing tobacco use presenting with 4 d of progressive dyspnea. CT findings as above - some concern for possible cardiac angiosarcoma, diffuse mediastinal and paratracheal LAD. Ddx broad to include infection - Tb unlikely, however with paratracheal involvement should be considered, Sarcoidosis, malignancy - lymphoma vs cardiac primary given CT findings -Admit to medical -Obtain 2D echo -Cardiology consultation initially re: findings on CT. If primary malignancy is suspected patient may require transfer -Consider Pulmonary vs General Surgery consultation for LN biopsy -Remainder as above Resident Activity Tracking Resident Involvement: Resident Care Provided Care Provided: Adult Hospital Medicine"
[2023-12-08] MEDS: hydrOXYzine HCl 25 MG TAB PO STA (06:19)
[2023-12-08] MEDS ORDERED: ONDANSETRON INJ 2 MG/ML 2 ML VIAL IV PRN (09:00)
[2023-12-08] MEDS: NICOTINE 21 MG/24 HR TDSY TD SCH (09:02)
--- NOTE | 2023-12-08 13:59 | Electrocardiogram Report ---
Test Reason : Blood Pressure : */* mmHG Vent. Rate : 102 BPM Atrial Rate : 102 BPM P-R Int : 138 ms QRS Dur : 94 ms QT Int : 340 ms P-R-T Axes : 60 87 67 degrees QTcB Int : 443 ms Sinus tachycardia Otherwise normal ECG No previous ECGs available Confirmed by Ridge Barrett ([id number]) on 12/08/2023 1:59:10 PM Referred By: REFERRED SELF Confirmed By: Ridge Barrett
[2023-12-08] MEDS: CEFEPIME 2000MG 2,000 MG/20 ML SYR IV SCH (16:44)
[2023-12-08] MEDS: ACETAMINOPHEN 1,000 MG/100 ML VIAL IV PRN (17:08)
--- NOTE | 2023-12-08 19:24 | XCELERA ---
[id number]
[2023-12-08] MEDS: BENZONATATE 100 MG CAPSULE PO PRN (19:39)
--- NOTE | 2023-12-08 22:27 | Billing Data ---
Date of Service December 08, 2023 Coding Level of Care Code 35823 INT INP/OBS CARE
[2023-12-09 07:20] LABS: Basophils # (auto) 0.05 K/uL (0.00-0.20); Basophils % (auto) 0.5 %; Eosinophils # (auto) 0.05 K/uL (0.00-0.50); Eosinophils % (auto) 0.5 %; Hematocrit (blood only) 46.3 % (42.0-52.0); Hemoglobin 15.5 g/dl (14.0-18.0); Immature Granulocytes # (auto) 0.03 K/uL (0.01-0.20); Immature Granulocytes % (auto) 0.3 %; Lymphocytes % (auto) 21.9 %; Mean Corpuscular Hemoglobin 27.9 pg (25.0-34.0); Mean Corpuscular Hgb Conc 33.5 g/dL (32.0-36.0); Mean Corpuscular Volume 83.4 fL (80.0-100.0); Monocytes # (auto) 0.89 K/uL (0.11-0.59); Monocytes % (auto) 9.7 %; Neutrophils # (auto) 6.11 K/uL (1.40-6.50); Neutrophils % (auto) 67.1 %; Platelet Count 196 K/uL (130-400); RDW Coefficient of Variation 13.1 % (11.5-14.5); RDW Standard Deviation 39.6 fL (36.4-46.3); Red Blood Count 5.55 M/uL (4.70-6.10); White Blood Count 9.13 K/ul (4.8-10.8)
[2023-12-09 07:35] LABS: Albumin Globulin Ratio 1.4 (0.9-2); Albumin Level 4.2 gm/dl (3.4-5.0); BUN Creatinine Ratio 13.1 (10-20); Bilirubin,Total 0.6 mg/dl (0.2-1.0); C Reactive Protein 5.88 mg/dl (0-0.5); Calcium 9.2 mg/dl (8.6-10.3); Creatinine Clr Calc Pharmacy 129.3 ml/min; Total Protein 7.2 gm/dl (6.0-8.3)
[2023-12-09] MEDS ORDERED: ALBUTEROL 0.083% NEBU SOLN 3 ML VIAL NEB PRN (08:51)
--- NOTE | 2023-12-09 09:23 | Hospitalist Progress Note ---
"Date of Service December 09, 2023 Assessment & Plan (1) Abnormal CT scan: (2) Hypoxia: (3) SOB (shortness of breath): (4) Leukocytosis: (5) Nicotine dependence: Plan Gianfranco is a 38M w/ PMH of elevated BP w/o diagnosis of HTN, prediabetes, and nicotine dependence who presents for dyspnea. Dyspnea, Acute on chronic | Hypoxia - 4 days of acutely worsened dyspnea and coughing over 1 year + of baseline exertional dyspnea - Labored breathing, reduced air entry, and axillary LAD on examination - Tachycardia and hypoxia on presentation O2 saturation improved w/ NC supplementation - Mild leukocytosis on CBC, CMP negative Respiratory viral panel negative Anaplasma and Babesia screen negative, Lyme screen pending Quantiferon gold ordered on admission - CTAP 2.0 x 1.6 cm subtle focal filling defect in the cardiac left lateral ventricle, question thrombus/pseudo-thrombus versus angiosarcoma Nonspecific multiple small/shotty para-aortic retroperitoneal lymph node seen. No lymphadenopathy by CT size criteria. - CTA Chest Nonspecific mediastinal/bilateral hilar and axillary lymphadenopathy. Moderately severe centrilobular pulmonary emphysema. Moderate bilateral bronchial wall thickening/mild dilatation. Mildly enlarged main pulmonary artery, suggestive of sequela of secondary pulmonary arterial hypertension. - Differential includes tuberculosis, sarcoidosis, malignancy Potential diagnoses and course of action shared with patient at length - Consult Cardiology Echocardiogram ordered Would plan General Surgery consult following Cardiology consult if Bx indicated Nicotine Dependence - Ongoing since teenage years, 1.5 PPD - Nicotine patch inpatient - Wants to quit Chronic Conditions - Elevated BP w/o HTN: no home medications - Prediabetes: no home medications Code: Full DVT: SCD/Ambulation IVF: None Diet: NPO pending further evaluation Dispo: Med/Tele Admission and Anticipated Discharge Date Admission Date: December 08, 2023 Results & Data Results & Data Vital Signs (Past 12 Hours) Vital Signs Temp Pulse Pulse Resp BP Pulse Ox O2 Del Method 12/09/23 07:00 36.6 C 119 H 20 128/67 95 Nasal Cannula 12/09/23 03:00 37.9 C H 101 H 18 119/75 92 Nasal Cannula 12/08/23 23:32 37.8 C H 109 H 18 114/71 93 Nasal Cannula 12/08/23 22:55 92 H 12/08/23 21:26 Nasal Cannula O2 Flow Rate 12/09/23 07:00 1.5 12/09/23 03:00 1.5 12/08/23 23:32 1.5 12/08/23 22:55 12/08/23 21:26 2 Resident Activity Tracking Resident Involvement: Resident Care Provided Care Provided: Adult Hospital Medicine"
--- NOTE | 2023-12-09 09:55 | Medical Student Progress Note ---
Date of Service December 09, 2023 Assessment & Plan (1) Hypoxia: (2) SOB (shortness of breath): (3) Leukocytosis: (4) Nicotine dependence: Plan Gianfranco is a 38M w/ PMH of elevated BP w/o diagnosis of HTN, prediabetes, and nicotine dependence who presents for dyspnea. Dyspnea, Hypoxia - Mild exertional dyspnea for 1 yr - 7 days of cough, dyspnea after breathing in irritant - Hypoxia on presentation, Improved on nasal cannula - CMP negative, Respiratory viral panel negative, Anaplasma, Babesia, Lyme screen negative, Quantiferon pending, - CTAP: 2.0 x 1.6 cm subtle focal filling defect in the cardiac left lateral ventricle, question thrombus/pseudo-thrombus versus angiosarcoma Nonspecific multiple small/shotty para-aortic retroperitoneal lymph node seen. No lymphadenopathy by CT size criteria. - CTA Chest: Nonspecific mediastinal/bilateral hilar and axillary lymphadenopathy. Moderately severe centrilobular pulmonary emphysema. Moderate bilateral bronchial wall thickening/mild dilatation. Mildly enlarged main pulmonary artery, suggestive of sequela of secondary pulmonary arterial hypertension. - Echocardiogram: Normal transthoracic echocardiogram. Left ventricular systolic function is normal. No significant valvular heart disease. - Differential include tuberculosis, sarcoidosis, COPD exacerbation, infection - Add short acting nebulizer prn for wheezing - Add oral prednisone 40mg po - Alpha 1 antitrypsin level ordered - Pulmonary consult pending - Continue cefepime, blood cultures pending - NICK level ordered, pending Nicotine Dependence - Ongoing since teenage years, 1.5 PPD - Nicotine patch inpatient - Wants to quit Admission and Anticipated Discharge Date Admission Date: December 08, 2023 Subjective 38M w/PMH of mild dyspnea w/exertion for 1 year (undx) and nicotine dependence (approx 20 pack years) w/CC of dyspnea. Has had cough productive of yellow/clear mucus, SOB episodes, congestion and sore throat since 12/02. On that day, he had changed the muffler on mom's car, breathed in exhaust and smoke. Coughing so much that it caused episode of vomiting, low abd pain. went to [facility] 12/05: COVID -, normal CXR from patient Patient reports chills overnight not alleviated with Ofirmev. Highest recorded temp 37.9 C. Reports cough is slightly worse today, but overall feeling better No issues with walking, appetite, BM, urination. Review of Systems Review of Systems: All systems reviewed & are unremarkable except as noted in HPI & below Physical Exam Constitutional: WD/WN, vitals as above Respiratory: + cough, able to speak in complete sente nces and + audible wheezes (in R field) Auscultation: lungs clear to auscultation bilaterally Cardiovascular: RRR, no murmur, no edema Results & Data Vital Signs (Past 12 Hours) Vital Signs Temp Pulse Pulse Resp BP Pulse Ox O2 Del Method 12/09/23 07:00 36.6 C 119 H 20 128/67 95 Nasal Cannula 12/09/23 03:00 37.9 C H 101 H 18 119/75 92 Nasal Cannula 12/08/23 23:32 37.8 C H 109 H 18 114/71 93 Nasal Cannula 12/08/23 22:55 92 H 12/08/23 21:26 Nasal Cannula O2 Flow Rate 12/09/23 07:00 1.5 12/09/23 03:00 1.5 12/08/23 23:32 1.5 12/08/23 22:55 12/08/23 21:26 2 Resident Activity Tracking Resident Involvement: Resident Care Provided Care Provided: Adult Hospital Medicine Resident Supervision Co-Signing Physician Notes Resident Attestation I was personally present during medical student and patient encounter and independently interviewed and examined the patient and verified the winter history and physical, reviewed labs and image studies, discussed the case with Rekha SENA), and agree with the above mentioned findings and care plan. Patient is a 38 y/o M w/ PMHx of Asthma, nicotine dependence (smoked 1.5 packs per day), prediabetes, and elevated BP w/o dx of HTN who was admitted due to progressively worsening WOLFE. Patient had been having WOLFE for nearly a year, however, started getting worse for the last 4 days prior to admission. Also endorsed having cough productive of non-bloody sputum, sore throat and voice hoarseness. In terms of sick contacts, a work colleague went to [place] and returned sick and they have had intermittent rashes since, and his boss's was also sick. He has not travelled out of the country. Endorses night sweats and fevers/chills at the end of most days, which has been occurring for the last 5-7 months. Does not recall any unintended weight loss. Initial lab work up w/ mild leukocytosis but otherwise unremarkable. CTAP w/ 2.0 x 1.6 cm subtle focal filling defect in the cardiac left lateral ventricle, question thrombus/pseudo-thrombus versus angiosarcoma, and nonspecific multiple small/shotty para-aortic retroperitoneal lymph node seen. No lymphadenopathy by CT size criteria. CTA with Nonspecific mediastinal/bilateral hilar and axillary lymphadenopathy, moderately severe centrilobular pulmonary emphysema, moderate bilateral bronchial wall thickening/mild dilatation, mildly enlarged main pulmonary artery, suggestive of sequela of secondary pulmonary arterial hypertension. CTA did not note lesion in heart as noted in CTAP. TTE ordered due to findings from CTAP, which did not note any abnormalities within the left ventricle, overall unremarkable w/ EF of 60-65%. VS w/o fevers > 38 C since yesterday at 3 pm at which time abx were started, and intermittently tachycardic between 100-110s, BP normal. Am labs with WBC count now wnl; ESR and CRP elevated at 31 and 6.08, respectively, the latter having decreased to 5.88 today. Quantiferon gold pending. NICK level ordered and pending. Procal wnl at 0.04. Physical exam significant for wheezing on right lung field and no crackles, as well as dry coughing. Yesterday patient began having fevers as well as intermittent tachycardia and had need for NC for oxygen supplementation, therefore blood cultures ordered and pending, and Cefepime started to cover possible pulmonary infectious process. Given CTAP findings, cardiology was consulted, will appreciate reccs. Patient symptoms, history, and imaging findings puts infection with possible asthma/COPD exacerbation, TB, Sarcoidosis, or Malignancy in DDX list. Will change abx to Azithromycin, and add neb therapy prn, Prednisone 40 mg PO, and will add Anoro per pulm recc. Pulmonology consulted, will appreciate reccs. Otherwise as above. I personally examined the patient and verified all winter points of history and exam, discussed case, and agree with decision making with Dr Hayden and Monique Cee MS2 cough present but sob better vitals noted nad heent nc at mmm breathing unlabored no accessory muscles good effort skin no rashes no pallor or icterus lungs diminished throughout COPD exac (presumed COPD) - getting better, steroids/inhalers/supportive care. young and only ~20pk/yr - encouraged smoke cessation and sent alpha 1 level. improving. hopefully home soon close outpt f/u adenopathy - suspect reactive, bronch tomorrow to r/o sarcoid cardiac lesion - artifact given not present on echo DVT proph - ambulation
--- NOTE | 2023-12-09 10:14 | Pulmonary Consultation ---
Date of Consultation December 09, 2023 Assessment & Plan (1) Acute bronchitis: (2) LAD (lymphadenopathy), mediastinal: (3) Abnormal CT scan: (4) SOB (shortness of breath): (5) Nicotine dependence: Plan CT chest 12/09/2023 personally reviewed: Centrilobular and paraseptal emphysema appreciated bilaterally Patchy opacity in the right lower lobe Significant mediastinal and left hilar lymphadenopathy 2D echo 12/08/2023: EF 60-65%, RV normal in size and function -- Acute bronchitis Likely secondary to some viral infection which was not picked up on respiratory bio fire Respiratory BioFire negative for everything on 12/07/2023 Procalcitonin 0.04 CRP 6.08, ESR 31 -- Mediastinal lymphadenopathy Especially station 7 and left hilum Calcium within normal limit, no lymphopenia This could very well be reactive, underlying autoimmune disease like sarcoidosis versus lymphoma is a remote possibility Probability of being active TB is low --Current smoker [id number]-[id number] smoking history Importance of quitting explained to the patient in depth Plan: Patient does have some patchy opacity in the right lower lobe, give atypical antibiotic doxycycline for total of 5 days Okay to DC cefepime I did offer the patient EBUS to be done tomorrow but he would like to have repeat CAT scan of the chest done in 8-12 weeks and if he still has persistent lymphadenopathy then he would like to pursue EBUS as an outpatient I think that is also reasonable. Guaifenesin-DM to be used [id number] Encouraged to quit smoking He will benefit from Anoro or Stiolto inhaler to be used on a daily basis on discharge All questions and queries of the patient as well as patient's mother were answered in depth Please note the above document was generated using voice recognition software. It may contain grammatical, syntax or spelling errors.Any formal questions or concerns about the content, text or information contained within the body of this dictation should be directly addressed to the provider for clarification. History of Present Illness Attending Physician: Kanu Frank DO History of Present Illness 38-year-old male presented to the hospital for cough and shortness of breath Past medical history: Asthma as a child Pulmonary consulted for abnormal chest CT At the time of examination patient's mother was in the room. Patient was saturating 99% on 2 L oxygen while laying on the right side. He stated that his issues with breathing started approximately a week ago. It was mostly chest tightness and coughing He has a feeling that he has phlegm but is not able to bring it up. Denies any dysuria or diarrhea Did complain of subjective chills. No fever No unusual headache or blurry vision No nausea vomiting Social history: Approximately 65-iovl-[id number] smoking history, currently smoking a pack a day. 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 [employer] No pets at home History of asthma as a child No history of lung cancer in the family Allergies Allergy/AdvReac Type Severity Reaction Status Date / Time No Known Allergies Allergy Verified 12/07/23 23:52 Home Medications Medication Instructions Recorded Confirmed Type albuterol sulfate 90 mcg/actuation 1 - 2 puff inhalation BID 12/08/23 12/08/23 History aerosol inhaler benzonatate 100 mg capsule 100 mg PO TID 12/08/23 12/08/23 History cholecalciferol (vitamin D3) 50 50 mcg PO DAILY 12/08/23 12/08/23 History mcg (2,000 unit) capsule Patient History Social History Smoking Status: Current every day smoker Tobacco Type: Cigarettes Second Hand Exposure: Yes; Do You Dip or Chew Tobacco: No; Hx Alcohol Use: No Hx Substance Use: No Preferred Language: Uzbek Communication Ability: Effective Data Analysis Manager Required: No Beliefs That Will Affect Care: None Current Living Situation: Family and Significant Other Current Living Situation Comment: lives with fiance and 3 children Feels Safe at Home: Yes Assistive Devices: None Review of Systems 2 Review of Systems: All systems reviewed & are unremarkable except as noted in HPI & below Physical Exam 2 Physical Exam: Constitutional: No acute distress HEENT: EOMI, PERRLA, lateral strabismus of the right eye Respiratory system: Decreased air entry bilaterally, no wheeze, no rhonchi, mild crackles bilateral lower lobes CVS: S1-S2 positive, no murmurs or gallops Abdomen: Soft, nontender, nondistended, positive bowel sounds x4 Extremities: +2 pulses bilaterally radialis/ dorsalis pedis, no cyanosis, no edema Neuro: Awake alert oriented x3 Psych: Normal mood and affect G/U: No Vega Skin: no rashes, warm and dry Lymphatic: no cervical or axillary lymphadenopathy Results & Data Results & Data Vital Signs (Past 12 Hours) Vital Signs Temp Pulse Pulse Resp BP Pulse Ox O2 Del Method 12/09/23 07:00 36.6 C 119 H 20 128/67 95 Nasal Cannula 12/09/23 03:00 37.9 C H 101 H 18 119/75 92 Nasal Cannula 12/08/23 23:32 37.8 C H 109 H 18 114/71 93 Nasal Cannula 12/08/23 22:55 92 H O2 Flow Rate 12/09/23 07:00 1.5 12/09/23 03:00 1.5 12/08/23 23:32 1.5 12/08/23 22:55 Laboratory Results 12/09/23 06:49 12/09/23 06:49 PG Care Time/CCT Total # of Minutes Spent Total Time Spent with Patient: Total time spent is greater than 50% in coordination of care (as documented) at patient's floor/unit and/or counseling patient: Coding Level of Care Code 16578 INT INP/OBS CARE 3/75MIN Diagnoses Acute bronchitis J20.9 LAD (lymphadenopathy), mediastinal R59.[address] scan R93.89 SOB (shortness of breath) R06.02 Nicotine dependence F17.200
[2023-12-09] MEDS: BENZONATATE 100 MG CAPSULE PO PRN (13:10)
--- NOTE | 2023-12-09 14:48 | Cardiology Consultation ---
Date of Consultation December 09, 2023 Assessment & Plan (1) Abnormal CT scan: Reviewed patient's CT scan and echocardiogram from yesterday. No clear LV pathology noted. Additional echo images obtained today using Definity ultrasound contrast. Patient has normal LV function with no wall motion abnormalities and there is no evidence of LV thrombus or any LV masses. At this point feel cardiac findings on CT were likely artifact. No need for additional testing at this time. No other active cardiac conditions. We talked about smoking cessation and ASCVD primary prevention. History of Present Illness Attending Physician: Kanu Frank DO History of Present Illness Mr. Sanchez is a very pleasant 38-year-old man seen today due to possible LV abnormality on his CT scan. No prior cardiac history. He is a long-term smoker. Carries diagnosis of hypertension, prediabetes. Was admitted with worsening productive cough, dyspnea and hypoxia. Denies any recent weight loss, night sweats or other constitutional symptoms. No history of prior blood clots. Chest CT with emphysematous changes, lymphadenopathy and has been seen by pulmonary. On CT of abdomen/pelvis there was question of LV thrombus versus mass. Echo yesterday showed normal LV function, mild LVH with no appreciable LV pathology. Today reports that he is improving. Breathing comfortably off oxygen. Still with persistent cough. Being treated for acute bronchitis, questionable atypical pneumonia. Allergies Allergy/AdvReac Type Severity Reaction Status Date / Time No Known Allergies Allergy Verified 12/07/23 23:52 Home Medications Medication Instructions Recorded Confirmed Type albuterol sulfate 90 mcg/actuation 1 - 2 puff inhalation BID 12/08/23 12/08/23 History aerosol inhaler benzonatate 100 mg capsule 100 mg PO TID 12/08/23 12/08/23 History cholecalciferol (vitamin D3) 50 50 mcg PO DAILY 12/08/23 12/08/23 History mcg (2,000 unit) capsule Patient History Social History Smoking Status: Current every day smoker Tobacco Type: Cigarettes Second Hand Exposure: Yes; Do You Dip or Chew Tobacco: No; Hx Alcohol Use: No Hx Substance Use: No Preferred Language: Maldivian Communication Ability: Effective [employer] Required: No Beliefs That Will Affect Care: None Current Living Situation: Family and Significant Other Current Living Situation Comment: lives with fiance and 3 children Feels Safe at Home: Yes Assistive Devices: None Review of Systems Review of Systems: All systems reviewed & are unremarkable except as noted in HPI & below Physical Exam Physical Exam: General: Comfortable HEENT: Sclerae anicteric Lungs: Coughs with deep breaths. Coarse breath sounds with scattered rhonchi Cardiac: Regular rate and rhythm, no murmurs. Vascular: 2+ radial Abdomen: Soft, nontender Extremities: Well perfused, no peripheral edema Neuro: Nonfocal Psych: Alert orient x3, normal affect and mood Results & Data Vital Signs (Past 12 Hours) Vital Signs Temp Pulse Pulse Resp BP Pulse Ox O2 Del Method 12/09/23 14:38 105 H 22 105/68 90 Room Air 12/09/23 11:17 98.2 F 100 H 18 132/65 96 Nasal Cannula 12/09/23 09:00 103 H 12/09/23 09:00 Nasal Cannula 12/09/23 07:00 97.9 F 119 H 20 128/67 95 Nasal Cannula 12/09/23 03:00 100.2 F H 101 H 18 119/75 92 Nasal Cannula O2 Flow Rate 12/09/23 14:38 12/09/23 11:17 1.5 12/09/23 09:00 12/09/23 09:00 1 12/09/23 07:00 1.5 12/09/23 03:00 1.5 PG Care Time/CCT Total # of Minutes Spent Total Time Spent with Patient: Total time spent is greater than 50% in coordination of care (as documented) at patient's floor/unit and/or counseling patient: Coding Level of Care Code 90566 IN/OBS CONSULT LVL 4,60M Diagnoses Abnormal CT scan R93.89
[2023-12-09] MEDS: guaiFENesin/DEXTROM SYRUP 200MG/20MG 10ML UDC PO SCH (15:06)
[2023-12-09] MEDS: DOXYCYCLINE HYCLATE 100 MG CAP PO SCH (15:06)
--- NOTE | 2023-12-09 15:49 | XCELERA ---
[id number]
--- NOTE | 2023-12-09 17:06 | Electrocardiogram Report ---
Test Reason : Blood Pressure : */* mmHG Vent. Rate : 95 BPM Atrial Rate : 95 BPM P-R Int : 146 ms QRS Dur : 94 ms QT Int : 352 ms P-R-T Axes : 52 81 63 degrees QTcB Int : 442 ms Normal sinus rhythm Normal ECG When compared with ECG of 08-Dec-2023 01:02, No significant change was found Confirmed by Ridge Barrett [id number]) on 12/09/2023 5:05:42 PM Referred By: REFERRED SELF Confirmed By: Ridge Barrett
--- NOTE | 2023-12-09 19:15 | Billing Data ---
Date of Service December 09, 2023 Coding Level of Care Code 27652 SUB INP/OBS CARE
[2023-12-10] MEDS ORDERED: ONDANSETRON INJ 2 MG/ML 2 ML VIAL ONE (07:24)
[2023-12-10] MEDS ORDERED: GLYCOPYRROLATE 0.2 MG/ML VIAL ONE (07:24)
[2023-12-10] MEDS ORDERED: fentaNYL citrate PF 100 MCG/2 ML VIAL ONE (07:24)
[2023-12-10] MEDS ORDERED: MIDAZOLAM HCL 1 MG/ML 2ML VIAL ONE (07:24)
[2023-12-10] MEDS ORDERED: PROPOFOL IV EMULSION 10 MG/ML 20 ML VIAL IV ONE (07:24)
[2023-12-10] MEDS ORDERED: ROCURONIUM BROMIDE 10 MG/ML 5 ML VIAL IV ONE (07:24)
[2023-12-10] MEDS ORDERED: LIDOCAINE 2% 2 ML VIAL/AMP(20MG/ML) INFIL ONE (07:24)
[2023-12-10] MEDS ORDERED: DEXAMETHASONE SOD INJ 4 MG/ML VIAL ONE (07:24)
[2023-12-10] MEDS ORDERED: SUGAMMADEX SODIUM 200 MG/2 ML VIAL IV ONE (07:25)
[2023-12-10 07:47] LABS: Basophils # (auto) 0.03 K/uL (0.00-0.20); Basophils % (auto) 0.4 %; Eosinophils % (auto) 1.2 %; Hematocrit (blood only) 46.7 % (42.0-52.0); Immature Granulocytes # (auto) 0.02 K/uL (0.01-0.20); Immature Granulocytes % (auto) 0.2 %; Lymphocytes # (auto) 2.21 K/uL (1.20-3.40); Lymphocytes % (auto) 27.1 %; Mean Corpuscular Hemoglobin 28.4 pg (25.0-34.0); Mean Corpuscular Hgb Conc 34.3 g/dL (32.0-36.0); Mean Corpuscular Volume 82.8 fL (80.0-100.0); Mean Platelet Volume 9.9 fL (9.4-12.4); Monocytes # (auto) 0.89 K/uL (0.11-0.59); Monocytes % (auto) 10.9 %; Neutrophils # (auto) 4.89 K/uL (1.40-6.50); Neutrophils % (auto) 60.2 %; Platelet Count 203 K/uL (130-400); RDW Coefficient of Variation 12.7 % (11.5-14.5); RDW Standard Deviation 38.4 fL (36.4-46.3); Red Blood Count 5.64 M/uL (4.70-6.10); White Blood Count 8.14 K/ul (4.8-10.8)
[2023-12-10 08:32] LABS: Albumin Level 4.2 gm/dl (3.4-5.0); Bilirubin,Total 0.6 mg/dl (0.2-1.0); Calcium 9.4 mg/dl (8.6-10.3); Potassium 4.1 mmol/L (3.5-5.1)
[2023-12-10 08:38] LABS: Albumin Globulin Ratio 1.3 (0.9-2); C Reactive Protein 4.91 mg/dl (0-0.5); Creatinine Clr Calc Pharmacy 118.9 ml/min; Globulin 3.2 gm/dl (2.5-4.0); Total Protein 7.4 gm/dl (6.0-8.3)
[2023-12-10] MEDS: predniSONE 20 MG TAB PO SCH (08:44)
[2023-12-10] MEDS: UMECLIDINIUM/VILANTEROL 62.5/25MCG 7 PUFFS/INHALER INH SCH (08:44)
--- NOTE | 2023-12-10 09:55 | Pulmonology Progress Note ---
Date of Service December 10, 2023 Assessment & Plan (1) Acute bronchitis: (2) LAD (lymphadenopathy), mediastinal: (3) Abnormal CT scan: (4) SOB (shortness of breath): (5) Nicotine dependence: Plan CT chest 12/09/2023 personally reviewed: Centrilobular and paraseptal emphysema appreciated bilaterally Patchy opacity in the right lower lobe Significant mediastinal and left hilar lymphadenopathy 2D echo 12/08/2023: EF 60-65%, RV normal in size and function -- Acute bronchitis Likely secondary to some viral infection which was not picked up on respiratory bio fire Respiratory BioFire negative for everything on 12/07/2023 Procalcitonin 0.04 CRP 6.08, ESR 31 -- Mediastinal lymphadenopathy Especially station 7 and left hilum Calcium within normal limit, no lymphopenia This could very well be reactive, underlying autoimmune disease like sarcoidosis versus lymphoma is a remote possibility Probability of being active TB is low --Current smoker [id number]-[id number] smoking history Importance of quitting explained to the patient in depth Plan: Patient does have some patchy opacity in the right lower lobe, give atypical antibiotic doxycycline for total of 5 days Okay to DC cefepime Probability of patient having TB is very low. For EBUS today. Risk and benefits explained. Consent signed Guaifenesin-DM to be used [id number] Encouraged to quit smoking He will benefit from Anoro or Stiolto inhaler to be used on a daily basis on discharge Please note the above document was generated using voice recognition software. It may contain grammatical, syntax or spelling errors.Any formal questions or concerns about the content, text or information contained within the body of this dictation should be directly addressed to the provider for clarification. Admission and Anticipated Discharge Date Admission Date: December 08, 2023 Subjective Patient seen and examined at bedside. NAD. MADY overnight. Still complain cough with yellowish phelgm. No CP, No VALVERDE, No N or V. Was saturating 94% on 2L Review of Systems 2 Review of Systems: All systems reviewed & are unremarkable except as noted in Subjective Physical Exam 2 Physical Exam: Constitutional: No acute distress HEENT: EOMI, PERRLA, lateral strabismus of the right eye Respiratory system: Decreased air entry bilaterally, no wheeze, no rhonchi, mild crackles bilateral lower lobes CVS: S1-S2 positive, no murmurs or gallops Abdomen: Soft, nontender, nondistended, positive bowel sounds x4 Extremities: +2 pulses bilaterally radialis/ dorsalis pedis, no cyanosis, no edema Neuro: Awake alert oriented x3 Psych: Normal mood and affect G/U: No Vega Skin: no rashes, warm and dry Lymphatic: no cervical or axillary lymphadenopathy Results & Data Results & Data Vital Signs (Past 12 Hours) Vital Signs Temp Pulse Pulse Pulse Resp BP BP 12/10/23 09:31 37.2 C 112 H 20 132/85 12/10/23 09:00 80 12/10/23 09:00 12/10/23 07:22 37.0 C 94 H 18 122/77 12/10/23 04:34 37.2 C 83 18 101/76 12/10/23 00:54 38.1 C H 101 H 12/09/23 23:48 36.7 C 88 16 114/72 Pulse Ox O2 Del Method O2 Flow Rate 12/10/23 09:31 94 Nasal Cannula 2 12/10/23 09:00 12/10/23 09:00 Nasal Cannula 2 12/10/23 07:22 92 Nasal Cannula 2 12/10/23 04:34 95 Nasal Cannula 2 12/10/23 00:54 12/09/23 23:48 92 Nasal Cannula 2 Laboratory Results 12/10/23 07:24 12/10/23 07:24 PG Care Time/CCT Total # of Minutes Spent Total Time Spent with Patient: Total time spent is greater than 50% in coordination of care (as documented) at patient's floor/unit and/or counseling patient: Coding Level of Care Code 55813 SUB INP/OBS CARE 3/50MIN Diagnoses Acute bronchitis J20.9 LAD (lymphadenopathy), mediastinal R59.[address] scan R93.89 SOB (shortness of breath) R06.02 Nicotine dependence F17.200
--- NOTE | 2023-12-10 10:29 | Anesthesiology Consultation ---
Date of Service December 10, 2023 Assessment & Plan (1) Encounter for pre-operative examination: Chart Review Chart Review: Acceptable Risk for Surgery History Surgery Operation Date: 12/10/23 10:15 Proposed Procedures p Endobronchial Ultrasound - [facility] Height/Weight Height: 5 ft 6 in Weight: 93.6 kg Allergies Allergy/AdvReac Type Severity Reaction Status Date / Time No Known Allergies Allergy Verified 12/07/23 23:52 Medications Home Medications Medication Instructions Recorded Confirmed Last Taken albuterol sulfate 90 mcg/actuation 1 - 2 puff inhalation BID 12/08/23 12/08/23 12/07/23 aerosol inhaler benzonatate 100 mg capsule 100 mg PO TID 12/08/23 12/08/23 12/07/23 cholecalciferol (vitamin D3) 50 50 mcg PO DAILY 12/08/23 12/08/23 12/07/23 mcg (2,000 unit) capsule Active Medications Generic Name Dose Route Start Last Admin Trade Name Freq PRN Reason Stop Dose Admin Benzonatate 200 mg 12/09/23 06:51 12/09/23 20:25 Benzonatate 100 Mg Capsule PO 01/07/24 12:26 200 mg TID PRN Administration Cough Doxycycline Hyclate 100 mg 12/09/23 13:55 12/10/23 08:44 Doxycycline Hyclate 100 Mg Cap PO 12/14/23 13:54 100 mg BID MALIK Administration Guaifenesin/Dextromethorphan 10 ml 12/09/23 14:00 12/10/23 06:19 Guaifenesin/Dextrom Syrup 200mg/20mg 10ml Udc PO 01/08/24 13:59 10 ml Q8 MALIK Administration Acetaminophen 1,000 mg in 100 mls @ 400 mls/hr 12/08/23 05:59 12/10/23 01:08 Ofirmev IV 12/11/23 05:58 Infused Q8H PRN Infusion Pain or Fever Miscellaneous 1 each 12/08/23 08:59 12/10/23 08:44 Remove Nicoderm Patch N/A 01/07/24 08:58 1 each DAILY@0859 MALIK Administration Nicotine 1 patch 12/08/23 09:00 12/10/23 08:44 Nicotine 21 Mg/24 Hr Tdsy TD 01/07/24 08:59 1 patch QAM MALIK Administration Prednisone 40 mg 12/10/23 09:00 12/10/23 08:44 Prednisone 20 Mg Tab PO 01/09/24 08:59 40 mg DAILY MALIK Administration Umeclidinium/Vilanterol 1 puffs 12/10/23 09:00 12/10/23 08:44 Umeclidinium/Vilanterol 62.5/25mcg 7 Puffs/Inhaler INH 01/09/24 08:59 1 puffs DAILY MALIK Administration NPO Date Last Intake of Fluids: 12/09/23 Time Last Intake of Fluids: 23:00 Date Last Intake of Solids: 12/09/23 Time Last Intake of Solids: 21:00 Past Medical History Medical History (Updated 12/10/23 @ 10:33 by Florencio Blake MD) Prediabetes Hypertension LAD (lymphadenopathy), mediastinal Nicotine dependence Past Surgical History Surgical History (Updated 12/10/23 @ 10:33 by Florencio Blake MD) No pertinent past surgical history Social History Smoking Status: Current every day smoker Do You Dip or Chew Tobacco: No Hx Alcohol Use: No Hx Substance Use: No Physical Exam Vital Signs Last Vital Signs Temp 37.2 C 12/10/23 09:31 Pulse 112 H 12/10/23 09:31 Resp 20 12/10/23 09:31 BP 132/85 12/10/23 09:31 Pulse Ox 94 12/10/23 09:31 O2 Del Method Nasal Cannula 12/10/23 09:31 O2 Flow Rate 2 12/10/23 09:31 Testing Laboratory Results 12/10/23 07:24 12/10/23 07:24 PT 10.9 Seconds (9.0-12.0) 12/08/23 00:55 INR 1.0 (0.9-1.1) 12/08/23 00:55 APTT 33 Seconds (21-31) H 12/08/23 00:55 Urine Color Yellow 12/08/23 02:15 Urine Appearance Clear (Clear) 12/08/23 02:15 Urine pH 8.0 (4.5-7.5) H 12/08/23 02:15 Ur Specific [place] 1.031 (1.000-1.030) H 12/08/23 02:15 Urine Protein 1+ (Negative) H 12/08/23 02:15 Urine Glucose (UA) Negative (Negative) 12/08/23 02:15 Urine Ketones Trace (Negative) H 12/08/23 02:15 Urine Nitrite Negative (Negative) 12/08/23 02:15 Ur Leukocyte Esterase Negative (Negative) 12/08/23 02:15 Urine WBC (Auto) 0-5 /hpf (0-5) 12/08/23 02:15 Urine RBC (Auto) 0-2 /hpf (0-2) 12/08/23 02:15 U Hyaline Cast (Auto) 0-2 /lpf (0-2) 12/08/23 02:15 U Epithel Cells (Auto) 0-2 /hpf (0-2) 12/08/23 02:15 Urine Bacteria (Auto) None Seen (None Seen) 12/08/23 02:15 12/08/23 16:34 Aerobic Blood Culture - Preliminary Blood No growth in Aerobic bottle after 24 hours. Anaerobic Blood Culture - Preliminary No growth in Anaerobic bottle after 24 hours. 12/08/23 16:25 Aerobic Blood Culture - Preliminary Blood No growth in Aerobic bottle after 24 hours. Anaerobic Blood Culture - Preliminary No growth in Anaerobic bottle after 24 hours. Electrocardiogram Date: 12/09/23 Findings: + NSR @ (95) Echocardiogram Date: 12/08/23 LV Function: normal Valvular Disease: + no significant valvular disease
[2023-12-10] MEDS ORDERED: ePHEDrine sulfate 50 MG/ML AMP IV PRN (10:44)
[2023-12-10] MEDS ORDERED: ONDANSETRON INJ 2 MG/ML 2 ML VIAL IV PRN (10:44)
[2023-12-10] MEDS ORDERED: KETOROLAC 30 MG/ML VIAL IV PRN (10:44)
[2023-12-10] MEDS ORDERED: ATROPINE SULFATE 0.1 MG/ML 10ML SYR IV PRN (10:44)
[2023-12-10] MEDS: LACTATED RINGER'S 1,000 ML IV SCH (11:02)
[2023-12-10] MEDS ORDERED: SUCCINYLCHOLINE CHLORIDE 20 MG/ML 10 ML VIAL IV ONE (11:15)
--- NOTE | 2023-12-10 11:56 | Procedure Note ---
Procedure Note: Bronchoscopy Procedure PREOPERATIVE DIAGNOSIS: Mediastinal lymphadenopathy POSTOPERATIVE DIAGNOSIS: Mediastinal lymphadenopathy PROCEDURE PERFORMED: Flexible fiberoptic bronchoscopy with bronchial wash, clearing of the airways and EBUS COMPLICATIONS: None. INDICATION: Rule out malignancy/lymphoma PROCEDURE: After obtaining an informed consent, the patient was brought to the Bronchoscopy Suite. The patient had appropriate oxygen, blood pressure, heart rate, and respiratory rate monitoring applied and monitored continuously throughout the procedure. Sedation was managed by anesthesia, please refer to the note Bronchoscope was advanced through the ETT The trachea appeared normal.The bronchoscope was then advanced through the kojo, which was sharp. Significant amount of greenish-yellow phlegm was appreciated at the right main as well as left main. This was gradually suctioned out. Patient needed multiple saline washes. Once the phlegm was clear. The scope was then advanced into the right main stem and each segment, subsegement in the right upper lobe, right middle lobe and right lower lobe were visualized. There were no other findings including evidence of mass, anatomic distortions, or hemorrhage. The bronchoscope was subsequently withdrawn and advanced into the left mainstem. Second kojo on the left side was widened. Significant amount of phlegm was again appreciated in the left main, less pronounced compared to the right side. After suctioning again, each segment and subsegment was well visualized. No specific masses or other lesions were identified throughout the tracheobronchial tree on the left. Rhonchal washings were obtained from the right main and right lower lobe. 100 ml of saline was instilled and 40 ml of fluid was aspirated back.The bronchoscope was withdrawn and the area was suctioned clear. Flexible bronchoscope was withdrawn and EBUS was introduced Station 4L, 7 and 10L were visualized Station 7: 5 passes with multiple sweeps, adequate Station 10L: 4 passes with multiple sweeps, adequate EBUS was withdrawn and flexible bronchoscope was reintroduced Minimal bleeding was appreciated which was suctioned clear. The bronchoscope was then withdrawn to the mainstem. The area was suctioned clear. The bronchoscope was then withdrawn. The patient tolerated the procedure well without evidence of desaturation or complications. Bronchial wash samples were sent for cell count, Gram stain and bacterial culture, AFB culture and smear, fungal culture and smear. EBUS sample will be sent for flow cytometry, micro and cytology. Recommendations: Follow-up micro, cytology and pathology Follow-up chest x-ray Please note the above document was generated using voice recognition software. It may contain grammatical, syntax or spelling errors.Any formal questions or concerns about the content, text or information contained within the body of this dictation should be directly addressed to the provider for clarification. [facility] [place] Codes (Charges) Pulmonary/Thoracic Procedure 1: Pulmonary and Thoracic: 10797 Dx bronchoscopy/wash Procedure 2: Pulmonary and Thoracic: 75548 Bronchoscopy, clear airways Procedure 3: Pulmonary and Thoracic: 96907 Bronchoscopy, w/EBUS 1 or 2 mediastinal
--- NOTE | 2023-12-10 12:22 | XRay Report ---
XR chest 1V portable CLINICAL HISTORY: Post Bronchoscopy TECHNIQUE: Single frontal radiograph of the chest was obtained. Comparison: None available at the time of this dictation. FINDINGS: No lines and tubes are seen. The cardiomediastinal silhouette is normal. The lungs are clear. No evid ence of pleural effusion or pneumothorax. IMPRESSION: No acute abnormality and in particular no evidence of pneumothorax. ACT 112: Negative or not required by law. Electronically signed by: Vlad Armando M.D. 12/10/2023 12:21 PM
[2023-12-10] MEDS: fentaNYL citrate PF 100 MCG/2 ML VIAL IV PRN (12:45)
--- NOTE | 2023-12-10 13:17 | Anesthesiology Progress Note ---
Date of Service December 10, 2023 Anesthesia Post Procedure Vital Signs Vital Signs: Temp Pulse Pulse Pulse Resp BP BP 12/10/23 12:35 141 H 22 149/92 H 12/10/23 12:25 138 H 22 138/90 12/10/23 12:15 139 H 23 140/121 H 12/10/23 12:05 139 H 18 150/113 H 12/10/23 11:59 36.0 C L 140 H 16 143/104 H 12/10/23 09:31 37.2 C 112 H 20 132/85 12/10/23 09:00 80 12/10/23 09:00 12/10/23 07:22 37.0 C 94 H 18 122/77 12/10/23 04:34 37.2 C 83 18 101/76 12/10/23 00:54 38.1 C H 101 H 12/09/23 23:48 36.7 C 88 16 114/72 12/09/23 20:00 12/09/23 19:00 36.7 C 100 H 20 122/78 12/09/23 14:38 105 H 22 105/68 Pulse Ox O2 Del Method O2 Flow Rate 12/10/23 12:35 97 Oxymask 10 12/10/23 12:25 97 Oxymask 10 12/10/23 12:15 95 Oxymask 10 12/10/23 12:05 94 Oxymask 10 12/10/23 11:59 97 Oxymask 10 12/10/23 09:31 94 Nasal Cannula 2 12/10/23 09:00 12/10/23 09:00 Nasal Cannula 2 12/10/23 07:22 92 Nasal Cannula 2 12/10/23 04:34 95 Nasal Cannula 2 12/10/23 00:54 12/09/23 23:48 92 Nasal Cannula 2 12/09/23 20:00 Room Air 12/09/23 19:00 96 Room Air 1.5 12/09/23 14:38 90 Room Air Pain Intensity Chest: Pain Intensity: 0 Transfer of Care Handoff Completed per policy Notes Mental Status: alert / awake / arousable Patient Amnestic to Procedure: Yes Nausea / Vomiting: adequately controlled Pain: adequately controlled Airway Patency, RR, SpO2: stable & adequate BP & HR: stable & adequate Hydration State: stable & adequate Anesthetic Complications: no major complications apparent
[2023-12-10 13:51] VITALS: RESP 20
[2023-12-10 14:50] LABS: Hematocrit (blood only) 47.8 % (42.0-52.0); Hemoglobin 16.4 g/dl (14.0-18.0)
[2023-12-10 14:57] LABS: Fluid Mono/Macrophage 11 %; Lymphocyte Body Fluid Man 3 %; Neutrophil Body Fluid Man 86 %
[2023-12-10 15:30] VITALS: TEMP 98.2; O2SAT 91
--- NOTE | 2023-12-10 17:00 | Discharge Summary ---
Discharge Summary Date of Service December 10, 2023 Principal Dx & Hospital Course #1 = Principal Diagnosis (1) Hypoxia: (2) SOB (shortness of breath): (3) Leukocytosis: (4) Nicotine dependence: Plan Gianfranco is a 38M w/ PMH of elevated BP w/o diagnosis of HTN, prediabetes, and nicotine dependence who presents for dyspnea. Dyspnea, Hypoxia - Mild exertional dyspnea for 1 yr - 7 days of cough, dyspnea after breathing in irritant - Hypoxia on presentation, Improved on nasal cannula - CMP negative, Respiratory viral panel negative, Anaplasma, Babesia, Lyme screen negative, Quantiferon pending, - CTAP: 2.0 x 1.6 cm subtle focal filling defect in the cardiac left lateral ventricle, question thrombus/pseudo-thrombus versus angiosarcoma Nonspecific multiple small/shotty para-aortic retroperitoneal lymph node seen. No lymphadenopathy by CT size criteria. - CTA Chest: Nonspecific mediastinal/bilateral hilar and axillary lymphadenopathy. Moderately severe centrilobular pulmonary emphysema. Moderate bilateral bronchial wall thickening/mild dilatation. Mildly enlarged main pulmonary artery, suggestive of sequela of secondary pulmonary arterial hypertension. - Echocardiogram: Normal transthoracic echocardiogram. Left ventricular systolic function is normal. No significant valvular heart disease - Differential include tuberculosis, sarcoidosis, COPD exacerbation, infection - Alpha 1 antitrypsin level ordered - Pulmonary consult done, bronch done, biopsies pending - NICK level ordered, pending --- Current working diagnosis would be COPD with exacerbationthe main oddity being he has COPD and such young age. He is improving, safe/stable for home. Finish out a burst of prednisone, short course of doxycycline. Initiate inhalers with anticholinergic and long-acting beta agonist. Continue as needed beta agonist. Close outpatient follow-up. Sleep study in the semielective but near future Nicotine Dependence - Educated, very motivated to quit, feels like he will do well without much of any outside assistance. Safe/stable for home, PCP follow-up later this week/early next week, pulmonary follow-up 2-4 weeks. Notes For Next Care Provider Alpha-1, NICK level, biopsies from bronchoscopy are pending Medication Changes From Visit . Anoro added, short course of prednisone and doxycycline added. Admission HPI Per Admitting Provider Gianfranco is a 38M w/ PMH of elevated BP w/o diagnosis of HTN, prediabetes, and nicotine dependence who presents for dyspnea. Patient notes that 4 days ago he was changing the muffler on his mom's car and breathed in some exhaust/smoke, instantly he began having episodes of severe coughing and shortness of breath. Patient is a chronic smoker, he has been smoking 1.5 PPD since he was a teenager. He notes that for at least 1 year he has had some mild dyspnea with exertion, that he didn't think much of as it didn't limit his daily activities. Over the last week as he has been coughing, he notes increased sore throat and hoarse voice, but denies any URI sx (congestion, PND, sinus pressure, or rhinorrhea). Patient has not experienced fevers, chills, or night sweats until today, when he was noted to have a fever in the ED. Patient denies any nausea, emesis, abdominal pain, headaches, lightheadedness, or bowel/bladder changes. Patient has experienced no rashes or skin lesions. He does note that he has intermittently had swellings in his armpits that were notable when applying deodorant. He endorses normal appetite and has not lost weight. 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 In addition, one of the waitresses at the restaurant traveled out of the country ([place]) and came back sick and has had intermittent rashes since then. He is unsure what either individual was diagnosed with. Patient's mother was at bedside and noted that Gianfranco spent the entire first year of his life on oxygen therapy as he was born 3 months early. Patient has 3 young children at home and notes significant anxiety about getting home to his family. Patient was experiencing panic attack upon physician arrival to room but was able to talk through his concerns with provider. He would like to get home to his family as soon as possible. He is the sole provider for the household. Updated Medication List Medication Instructions Recorded Confirmed Type albuterol sulfate 90 mcg/actuation 1 - 2 puff inhalation BID 12/08/23 12/08/23 History aerosol inhaler benzonatate 100 mg capsule 100 mg PO TID 12/08/23 12/08/23 History cholecalciferol (vitamin D3) 50 50 mcg PO DAILY 12/08/23 12/08/23 History mcg (2,000 unit) capsule albuterol sulfate 90 mcg/actuation 1 inh inhalation Q4H PRN shortness 12/10/23 Rx aerosol inhaler of breath or wheezing #8.5 grams doxycycline hyclate 100 mg capsule 100 mg PO BID #8 caps 12/10/23 Rx prednisone 20 mg tablet 40 mg (2 x 20 mg) PO DAILY #4 tabs 12/10/23 Rx umeclidinium 62.5 mcg-vilanterol 1 inh inhalation DAILY #30 ea 12/10/23 Rx 25 mcg/actuation powdr for inhalation (Anoro Ellipta) Hospital Stay Data Consultations 12/08/23 05:14 ED Decision to Admit Stat 12/08/23 09:00 Consult Cardiology Routine 12/08/23 22:45 Consult Pulmonology Routine Procedures Performed Operation Date: 12/10/23 10:15 Actual Procedures p Endobronchial Ultrasound and bronchial wash(Not Applicable) - [facility], [facility] Diagnostic Imagining Performed 12/07/23 23:53 CT abd pelvis IV con only Stat CT angio chest PE protocol Stat Pending Results Patient Have Any Pending Studies at Discharge: Yes (alpha1 level, biopsies) Discharge Instructions Given to Patient (Per Discharging Provider) bronchitis -As we discussed, technically what brought you to the hospital would be labeled as a "COPD exacerbation"but the easiest way to think about it" bronchitis got you sicker than it normally should have because of underlying chronic lung disease. - To finish out treatment for the bronchitis, we will send with a short course of antibiotics (doxycycline twice a day for 4 more days, next dose tomorrow morning), and 4 more days of prednisone (steroid) 40 mg once a day (taken in the morning, as it can be fairly stimulating and make it hard to sleep if you take it later in the day) -Use your rescue inhaler (albuterol) up to every 4 hours as needed for shortness of breath, wheezing, or a tight coughover the next week it would not surprise me if you needed a lot more often than you normally do probable chronic lung disease /emphysema - as we discussed, your whole situation as well as your CT scan show a lot to make us highly suspicious you have chronic lung disease/smoker/, and spite of your young age - because of this, we will start managing things as though you have COPD, as your story unfolds if the diagnosis shift to something else, we will obviously adjust management appropriately. Typically the mainstay of managing COPD are "maintenance inhaler" and we will be sending you on Anoro (if it is not covered by insurance, there are multiple different inhalers to cover the same class of medicationsso we really want you on an anticholinergic inhaler and a long acting beta agonist, regardless of the brand) -sleep is also quite common, and if you have not it could be a contributor to some of what we are seeing going on in your lungs. we would recommend that you get a sleep study done sometime in the next few months. -Dr Zapata (Pulmonary) will also be doing what are called pulmonary function tests (lung volume measurements) in the office to get a good baseline assessment of how well you move air. - as we have been discussing, it is "mission critical" for you to quit smoking. Regardless of what else is going on, even if you have a more rare process causing the emphysema as well, generally quitting smoking is the single biggest step to preserving your health. -the biopsies and send-out labwork to look for things beyond "just regular" smokers' lung will take a week or so to come back - those results should be available when you follow up with your PCP or Dr Zapata to do -take doxycycline 100mg twice a day for four more days (next dose tomorrow) -take prednisone 40mg once a day for four more days (next dose tomorrow) -take the anoro inhaler daily whether you feel good, bad, or anything in between -use the albuterol (rescue inhaler) up to every four hours as needed; don't be surprised if you need it more in the next week or so -have a sleep study done sometime in the next few months -follow up with your PCP in the next week; follow up with Dr Zapata in the next 2-4 weeks (and make sure they review the alpha-1 level and biopsy results once they come back) -work your way up to at least 20-30 minutes of light cardio exercise a day - this will help with stress management and make it easier to not smoke again, and it will help your heart and lungs work as well as they can in spite of the dise ase already present -never smoke again Total Time Total Time Spent Total Time Spent (In Minutes): >30
--- NOTE | 2023-12-10 17:00 | Billing Data ---
Date of Service December 10, 2023 Coding Level of Care Code 38830 INP/OBS DISCH >30 MIN
[2023-12-10 17:06] VITALS: BP 127/84; PULSE 112
[2023-12-11 11:47] LABS: Quantiferon NIL 0.03 IU/mL; Quantiferon TB Gold Plus NEGATIVE (NEGATIVE)
[2023-12-12 02:43] LABS: Babesia microti DNA Not Detected (Not Detected)
== END 2023-12-10 17:26 | disposition home or self-care (01) | DRG 192 ==
LOC: SUATTDRO → ED 23:11 → EDINP 12-08 05:58 → SUATTDRO 12-08 05:58 → 2S 12-08 09:30